=== PATIENT | male | born 1955 | race African-American/Black ===

== ENCOUNTER 2016-07-07 16:04 | Emergency (ER) | payer MEDICARE ==
[~2016-07-07 16:04] MED LIST: DIVA500T17 PO; DIVA500T2 PO; IPRA4AER IH; LEVE100020 PO; LORA0.5T PO; METO25TA4 PO; OMEP20TA PO; RISP2TAB3 PO; RISP37.5 IM; RISP4TAB2 PO; ZOLP10TA4 PO
[2016-07-07 16:14] VITALS: BP 141/81
--- NOTE | 2016-07-07 16:27 | PHYS DOC ---
Past Medical History Past Medical History: COPD, Hypertension, Seizure, Other Additional Past Medical Histor: PNEUMONIA LAST YEAR Past Surgical History: No Surgical History Alcohol Use: None Drug Use: Marijuana Adult General Chief Complaint Chief Complaint: SEIZURE HPI HPI 60-year-old male with a history of seizure disorder who is noncompliant with his medications presents after a seizure today. Patient does not remember the event. He does not think he is taking his medications regularly. He denies a headache or any lateralizing neurologic weakness. He states to me he is not sure why he is here. He has not had any fever chills or sweats. [] Review of Systems Review of Systems Constitutional: Denies fever or chills [] Eyes: Denies change in visual acuity, redness, or eye pain [] HENT: Denies nasal congestion or sore throat [] Respiratory: Denies cough or shortness of breath [] Cardiovascular: No additional information not addressed in HPI [] GI: Denies abdominal pain, nausea, vomiting, bloody stools or diarrhea [] : Denies dysuria or hematuria [] Musculoskeletal: Denies back pain or joint pain [] Integument: Denies rash or skin lesions [] Neurologic: Denies headache, focal weakness or sensory changes [] Endocrine: Denies polyuria or polydipsia [] Allergies Allergies Allergies Coded Allergies Type Severity Reaction Last Updated Verified Penicillins Allergy Intermediate 10/04/15 Yes chlorpromazine Allergy Intermediate 10/04/15 Yes Physical Exam Physical Exam Constitutional: Well developed, well nourished, no acute distress, non-toxic appearance. [] HENT: Normocephalic, atraumatic, bilateral external ears normal, oropharynx moist, no oral exudates, nose normal. [] Eyes: PERRLA, EOMI, conjunctiva normal, no discharge. [] Neck: Normal range of motion, no tenderness, supple, no stridor. [] Cardiovascular:Heart rate regular rhythm, no murmur [] Lungs & Thorax: Bilateral breath sounds clear to auscultation [] Abdomen: Bowel sounds normal, soft, no tenderness, no masses, no pulsatile masses. [] Skin: Warm, dry, no erythema, no rash. [] Back: No tenderness, no CVA tenderness. [] Extremities: No tenderness, no cyanosis, no clubbing, ROM intact, no edema. [] Neurologic: Alert and oriented X 3, normal motor function, normal sensory function, no focal deficits noted. [] Psychologic: Affect normal, judgement normal, mood normal. [] Current Patient Data Vital Signs Vital Signs Date Time Temp Pulse Resp B/P Pulse Ox O2 Delivery O2 Flow Rate FiO2 07/07/16 16:14 98.5 77 15 141/81 98 Room Air 98.5 EKG EKG [] Radiology/Procedures Radiology/Procedures [] Course & Med Decision Making Course & Med Decision Making Pertinent Labs and Imaging studies reviewed. (See chart for details) [ED course: Evaluation reveals 60-year-old male with a seizure disorder who states he does not want any testing performed on him today. Given the fact he is awake alert answering questions appropriately I feel he is safe for discharge home this time.] Dragon Disclaimer Dragon Disclaimer This electronic medical record was generated, in whole or in part, using a voice recognition dictation system. Departure Departure Impression: Primary Impression: Seizure Additional Impression: Medical non-compliance Disposition: 01 HOME, SELF-CARE Condition: STABLE Referrals: SYMONE EVANGELISTA (PCP) Patient Instructions: Seizure, Adult Additional Instructions: Please take all of her medications as directed. Return to the emergency department with any new or concerning symptoms Problem Qualifiers SUSAN YANG DO Jul 07, 2016 16:26
== END 2016-07-07 16:50 | disposition home or self-care (01) ==
LOC: ER 16:04
DX: G40.909 Epilepsy, unspecified, not intractable, without status epilepticus (principal); I10 Essential (primary) hypertension; J44.9 Chronic obstructive pulmonary disease, unspecified; F12.10 Cannabis abuse, uncomplicated; Z91.14 Patient's other noncompliance with medication regimen; Z88.0 Allergy status to penicillin; Z88.8 Allergy status to other drugs, medicaments and biological substances
CPT/HCPCS: 99284

== ENCOUNTER 2018-11-01 10:44 | Inpatient (IN) | payer MEDICARE ==
[~2018-11-01] VITALS: Ht 167.6 cm; Wt 66.3 kg
[~2018-11-01 10:44] MED LIST changes: -OMEP20TA PO; +OMEP20TA8 PO
[2018-11-01] MEDS ORDERED: IV NORMAL SALINE 1000ML BAG 1,000 ML IV SCH (10:49)
--- NOTE | 2018-11-01 10:49 | PHYS DOC ---
Past Medical History Past Medical History: COPD, Hypertension, Seizure, Other Additional Past Medical Histor: PNEUMONIA LAST YEAR Past Surgical History: No Surgical History Alcohol Use: None Drug Use: Marijuana Adult General Chief Complaint Chief Complaint: shortness of breath HPI HPI Patient is a 63 year old male patient with history of schizoaffective disorder and COPD without oxygen and resident of [facility] brought in by EMS because of shortness of breath. Patient had shortness of breath with O2 sat of 70% at room air that improved after rest and oxygen. Patient went outside and smoke and had another episode of shortness of breath with drop of O2 sat to 70% and was started on 2 L of oxygen. EMS reported that patient O2 sat of low 80s on 2 L of oxygen that increase with her starting CPAP. Patient denies chest pain with complaining of left lower quadrant pain as a chronic intermittent pain. Patient denies chest pain and productive cough, fever and chills, focal neuro deficit a nd dizziness. Patient is a poor historian. Review of Systems Review of Systems Constitutional: Denies fever or chills [] Eyes: Denies change in visual acuity, redness, or eye pain [] HENT: Denies nasal congestion or sore throat [] Respiratory: Reports cough and shortness of breath Cardiovascular: No additional information not addressed in HPI [] GI: Denies abdominal pain, nausea, vomiting, bloody stools or diarrhea [] : Denies dysuria or hematuria [] Musculoskeletal: Denies back pain or joint pain [] Integument: Denies rash or skin lesions [] Neurologic: Denies headache, focal weakness or sensory changes [] Endocrine: Denies polyuria or polydipsia [] All other systems were reviewed and found to be within normal limits, except as documented in this note. Current Medications Current Medications Current Medications Medications (Trade) Dose Ordered Sig/Madelaine Start Time Stop Time Status Last Admin Dose Admin Albuterol/ Ipratropium (Duoneb) 3 ml 1X ONCE 11/01/18 11:00 11/01/18 11:01 DC 11/01/18 11:24 3 ML Methylprednisolone Sodium Succinate (SOLU-Medrol 125MG VIAL) 125 mg 1X ONCE 11/01/18 11:00 11/01/18 11:01 DC 11/01/18 11:00 125 MG Sodium Chloride 1,000 ml @ 1,000 mls/hr Q1H 11/01/18 10:49 11/01/18 11:48 DC 11/01/18 11:10 1,000 MLS/HR Allergies Allergies Allergies Coded Allergies Type Severity Reaction Last Updated Verified Penicillins Allergy Intermediate 10/04/15 Yes chlorpromazine Allergy Intermediate 10/04/15 Yes Physical Exam Physical Exam Constitutional: Well nourished, moderate distress, non-toxic appearance. [] HENT: Normocephalic, atraumatic, oropharynx moist. Eyes: PERRLA, EOMI, conjunctiva normal, no discharge. [] Neck: Normal range of motion, no tenderness, supple, no stridor. [] Cardiovascular:Heart rate regular rhythm, no murmur [] Lungs & Thorax: Moderate respiratory distress with intercostal retraction and hyperventilation, diffuse rhonchi and expiratory wheezing . Abdomen: Bowel sounds normal, soft, no tenderness, no masses, no pulsatile ma sses. [] Skin: Warm, dry, no erythema, no rash. [] Back: No tenderness, no CVA tenderness. [] Extremities: No tenderness, no cyanosis, no clubbing, ROM intact, no edema. [] Neurologic: Alert and oriented , normal motor function, normal sensory function, no focal deficits noted. [] Current Patient Data Vital Signs Vital Signs Date Time Temp Pulse Resp B/P (MAP) Pulse Ox O2 Delivery O2 Flow Rate FiO2 11/01/18 10:44 98.2 69 30 189/86 (120) 96 Nasal Cannula 4.0 98.2 Lab Values Laboratory Tests Test 11/01/18 10:50 11/01/18 10:55 O2 Saturation 97 % (92-99) Arterial Blood pH 7.26 (7.35-7.45) L Arterial Blood pCO2 at Patient Temp 66 mmHg (35-46) *H Arterial Blood pO2 at Patient Temp 107 mmHg (65-108) Arterial Blood HCO3 29 mmol/L (21-28) H Arterial Blood Base Excess 0 mmol/L (-3-3) FiO2 32 White Blood Count 8.7 x10^3/uL (4.0-11.0) Red Blood Count 4.53 x10^6/uL (4.30-5.70) Hemoglobin 14.0 g/dL (13.0-17.5) Hematocrit 41.7 % (39.0-53.0) Mean Corpuscular Volume 92 fL (79-100) Mean Corpuscular Hemoglobin 31 pg (25-35) Mean Corpuscular Hemoglobin Concent 34 g/dL (31-37) Red Cell Distribution Width 13.8 % (11.5-14.5) Platelet Count 179 x10^3/uL (140-400) Neutrophils (%) (Auto) 51 % (31-73) Lymphocytes (%) (Auto) 32 % (24-48) Monocytes (%) (Auto) 9 % (0-9) Eosinophils (%) (Auto) 7 % (0-3) H Basophils (%) (Auto) 1 % (0-3) Neutrophils # (Auto) 4.4 x10^3uL (1.8-7.7) Lymphocytes # (Auto) 2.8 x10^3/uL (1.0-4.8) Monocytes # (Auto) 0.8 x10^3/uL (0.0-1.1) Eosinophils # (Auto) 0.6 x10^3/uL (0.0-0.7) Basophils # (Auto) 0.0 x10^3/uL (0.0-0.2) D-Dimer (Olivia) 0.52 ug/mlFEU (0.00-0.50) H Sodium Level 141 mmol/L (136-145) Potassium Level 4.6 mmol/L (3.5-5.1) Chloride Level 103 mmol/L (98-107) Carbon Dioxide Level 30 mmol/L (21-32) Anion Gap 8 (6-14) Blood Urea Nitrogen 14 mg/dL (8-26) Creatinine 1.2 mg/dL (0.7-1.3) Estimated GFR (Cockcroft-Gault) 73.5 BUN/Creatinine Ratio 12 (6-20) Glucose Level 91 mg/dL (70-99) Lactic Acid Level 0.8 mmol/L (0.4-2.0) Calcium Level 9.7 mg/dL (8.5-10.1) Total Bilirubin 0.3 mg/dL (0.2-1.0) Aspartate Amino Transferase (AST) 21 U/L (15-37) Alanine Aminotransferase (ALT) 26 U/L (16-63) Alkaline Phosphatase 108 U/L (46-116) Creatine Kinase 322 U/L (39-308) H Troponin I Quantitative < 0.017 ng/mL (0.000-0.055) PN-Uzz-H-Type Natriuretic Peptide 310 pg/mL (0-124) H Total Protein 8.1 g/dL (6.4-8.2) Albumin 3.6 g/dL (3.4-5.0) Albumin/Globulin Ratio 0.8 (1.0-1.7) L Valproic Acid Level 116 mcg/mL (50-100) H Valproic Acid Last Dose Date 10/31/18 Valproic Acid Last Dose Time 2100 Laboratory Tests 11/01/18 10:55 Laboratory Tests 11/01/18 10:55 EKG EKG EKG interpreted by me. EKG at 1050 showed normal sinus rhythm at rate of 70, left atrial abnormality, incomplete right bundle-branch block, nonspecific ST and T-wave abnormalities without ST elevation. Radiology/Procedures Radiology/Procedures [][facility] [address] [place] [address] IMAGING REPORT Signed PATIENT: JAKE GAONA ACCOUNT: [id number] : 1955 LOCATION: ER AGE: 63 SEX: M EXAM STATUS: REG ER ORD. PHYSICIAN: LIT THAPA MD REASON: shortness of breath PROCEDURE: PORTABLE CHEST 1V Single view chest dated 11/01/2018. Comparison made to 09/28/2015 CLINICAL INDICATION: Shortness of breath. FINDINGS: Single upright portable exam performed. Heart and mediastinal contours are stable. Lungs are somewhat hyperinflated but otherwise clear. No consolidation or pleural effusion. No pneumothorax. Moderate degenerative change of the right shoulder joint. IMPRESSION: No acute radiographic abnormality. Stable findings compared to 09/29/2015. Electronically signed by: Yunior Fitzgerald MD (11/01/2018 11:25 AM) [facility] DICTATED and SIGNED BY: YUNIOR FITZGERALD MD DATE: 11/01/18 1125 Course & Med Decision Making Course & Med Decision Making Pertinent Labs and Imaging studies reviewed. (See chart for details) Evaluation of patient in ER showed 63-year-old male patient with history of COPD and currently smoking brought in by EMS because of shortness of breath. Patient had respiratory distress that improved with nebulizer treatment and Solu-Medrol and IV fluid. Chest x-ray did not show infiltration.Patient requiring admission for further evaluation and treatment. Discussed with Dr. Weems who is in agreement with admission. Discussed findings and plan with patient and family, who acknowledge understanding and agreement. Dragon Disclaimer Dragon Disclaimer This electronic medical record was generated, in whole or in part, using a voice recognition dictation system. Departure Departure Impression: Primary Impression: COPD exacerbation Additional Impressions: Hypoxia Schizoaffective disorder Disposition: 09 ADMITTED INPATIENT (at 1151) Admitting Physician: Shelly Weems (accepted admission at 1150) Condition: IMPROVED Referrals: SYMONE EVANGELISTA (PCP) Problem Qualifiers Additional Impressions: Schizoaffective disorder Schizoaffective disorder type: unspecified Qualified Codes: F25.9 - Schizoaffective disorder, unspecified LIT THAPA MD November 01, 2018 10:49
[2018-11-01] MEDS ORDERED: methylPREDNISolone SOD SUCC PF 125 MG/2 ML VIAL. IV ONE (11:00)
[2018-11-01] MEDS ORDERED: IPRATRPIUM/ALBUTEROL 0.5/2.5MG 3 ML NEBU. NEB ONE (11:00)
[2018-11-01 11:04] LABS: BASE EXCESS ABG 0 mmol/L (-3-3); HCO3 ABG 29 mmol/L (21-28); PO2 ABG 107 mmHg (65-108); SAT O2 ABG 97 % (92-99)
[2018-11-01 11:09] LABS: FIO2 ABG 32; PCO2 ABG 66 mmHg (35-46)
[2018-11-01 11:13] LABS: BASO % 1 % (0-3); EOS # 0.6 x10^3/uL (0.0-0.7); EOS % 7 % (0-3); HEMATOCRIT 41.7 % (39.0-53.0); LYMPH # 2.8 x10^3/uL (1.0-4.8); LYMPH % 32 % (24-48); MEAN CORPUSCULAR HEMOGLOBIN 31 pg (25-35); MEAN CORPUSCULAR HGB CONC 34 g/dL (31-37); MEAN CORPUSCULAR VOLUME 92 fL (79-100); MONO # 0.8 x10^3/uL (0.0-1.1); MONO % 9 % (0-9); NEUT # 4.4 x10^3uL (1.8-7.7); NEUT % 51 % (31-73); PLATELET COUNT 179 x10^3/uL (140-400); RED BLOOD COUNT 4.53 x10^6/uL (4.30-5.70); RED CELL DISTRIBUTION WIDTH 13.8 % (11.5-14.5); WHITE BLOOD COUNT 8.7 x10^3/uL (4.0-11.0)
--- NOTE | 2018-11-01 11:22 | EKG ---
[facility] [address] [place] [address] Test Date: 2018-11-01 Test Time: 10:50:46 Pat Name: JAKE GAONA Department: Room: Gender: M Incident Manager: : 1955 Requested By: LIT THAPA Order Number: [id number] Reading MD: Yuniel Santos Measurements Intervals [place] Rate: 69 P: 73 CA: 146 QRS: 79 QRSD: 116 T: 53 QT: 416 QTc: 452 Interpretive Statements SINUS RHYTHM LEFT ATRIAL ABNORMALITY INCOMPLETE RIGHT BUNDLE BRANCH BLOCK Electronically Signed On 11-26-2018 11:39:43 CDT by Yuniel Santos
[2018-11-01 11:23] LABS: CALCIUM 9.7 mg/dL (8.5-10.1); CREATININE 1.2 mg/dL (0.7-1.3); GFR 73.5; POTASSIUM 4.6 mmol/L (3.5-5.1)
--- NOTE | 2018-11-01 11:28 | RAD ---
Single view chest dated 11/01/2018. Comparison made to 09/28/2015 CLINICAL INDICATION: Shortness of breath. FINDINGS: Single upright portable exam performed. Heart and mediastinal contours are stable. Lungs are somewhat hyperinflated but otherwise clear. No consolidation or pleural effusion. No pneumothorax. Moderate degenerative change of the right shoulder joint. IMPRESSION: No acute radiographic abnormality. Stable findings compared to 09/29/2015. Electronically signed by: Yunior Fitzgerald MD (11/01/2018 11:25 AM) [id number]
[2018-11-01 11:29] LABS: ALBUMIN 3.6 g/dL (3.4-5.0); ALBUMIN/GLOBULIN RATIO 0.8 (1.0-1.7); TOTAL BILIRUBIN 0.3 mg/dL (0.2-1.0); TOTAL PROTEIN 8.1 g/dL (6.4-8.2)
[2018-11-01 11:33] LABS: VAL ACID 116 mcg/mL (50-100)
[2018-11-01] MEDS ORDERED: cefTRIAXone IV Push 1 GM VIAL. IVP ONE (12:00)
[2018-11-01] MEDS ORDERED: KETOROLAC 30 MG/ML VIAL. IV ONE (12:45)
[2018-11-01] MEDS ORDERED: OLAN2.5T3 PO (14:13)
[2018-11-01] MEDS ORDERED: LORA0.5T PO (14:13)
[2018-11-01] MEDS ORDERED: LATA2.5D3 EACHEYE (14:13)
[2018-11-01] MEDS ORDERED: CARV12.511 PO (14:13)
[2018-11-01] MEDS ORDERED: VALP250C2 PO (14:13)
[2018-11-01] MEDS ORDERED: DOCU100C28 PO (14:13)
[2018-11-01] MEDS ORDERED: ZOLP5TAB5 PO (14:13)
[2018-11-01] MEDS ORDERED: HALO10TA PO (14:13)
[2018-11-01] MEDS ORDERED: FAMO20TA5 PO (14:13)
[2018-11-01] MEDS ORDERED: FLUV50TA2 PO (14:13)
[2018-11-01] MEDS ORDERED: DICL100G18 TP (14:13)
[2018-11-01] MEDS ORDERED: TRAM50TA PO (14:13)
[2018-11-01 14:35] VITALS: BP 150/96
[2018-11-01] MEDS ORDERED: RISPERIDONE 4 MG PO SCH (15:00)
[2018-11-01] MEDS ORDERED: DICLOFENAC SODIUM 1% TOPICAL GEL 100GM TUBE. TP PRN (15:00)
[2018-11-01] MEDS ORDERED: LORazepam 0.5 MG TABLET PO SCH ×2 (15:00→17:00)
[2018-11-01] MEDS: IPRATRPIUM/ALBUTEROL 0.5/2.5MG 3 ML NEBU. NEB SCH ×2 (15:29→19:15)
[2018-11-01] MEDS ORDERED: ALBUTEROL SULFATE 2.5 MG/3 ML NEBU. NEB PRN (15:45)
[2018-11-01] MEDS: DOXYCYCLINE HYCLATE 100 MG TABLET PO SCH ×2 (16:43→21:00)
[2018-11-01] MEDS: DOCUSATE SODIUM 100 MG CAPSULE. PO SCH (16:43)
[2018-11-01] MEDS: CARVEDILOL 12.5 MG TABLET. PO SCH (16:43)
[2018-11-01] MEDS: LORazepam 0.5 MG TABLET PO PRN ×2 (16:43→21:23)
[2018-11-01] MEDS ORDERED: NON FORMULARY ITEM (Ipratropium/Albuterol Sulfate (Combivent Respimat Inhal) 2 INH) IH SCH (17:00)
--- NOTE | 2018-11-01 17:45 | PDOC1 ---
History and Physical Date of Admission Date of Admission DATE: 11/01/18 TIME: 17:41 Identification/Chief Complaint Chief Complaint hypoxia, weakness Source Source: Chart review History of Present Illness History of Present Illness Mr. Trevino, 63 yo male, with schizoaffective do, odd affect at baseline, difficult historian. He feels dyspneic, Acute new short of breath today, at facility, was Sa02 70's, then EMS reported Sa02 82% on 2 liters, enroucnt, with marked expiratory wheezing, now on 6th floor, he is weak, and lethargic. complains of cough and chronic joint pain, would like something to eat. Flat affect Past Medical History Cardiovascular: HTN Pulmonary: COPD, Pneumonia CENTRAL NERVOUS SYSTEM: Seizure GI: GERD Hepatobiliary: Hep A/B/C Psych: Depression, Schizophrenia Renal/: Chronic renal failure Past Surgical History Past Surgical History: No pertinent history Family History Family History: Family History Unknown Social History Smoke: <1 pack per day ALCOHOL: none Drugs: Other Current Problem List Problem List Problems Medical Problems: (1) COPD exacerbation Status: Acute (2) Hypoxia Status: Acute (3) Schizoaffective disorder Status: Acute Current Medications Current Medications Current Medications Sodium Chloride 1,000 ml @ 1,000 mls/hr Q1H IV Last administered on 11/01/18at 11:10; Start 11/01/18 at 10:49; Stop 11/01/18 at 11:48; Status DC Albuterol/ Ipratropium (Duoneb) 3 ml 1X ONCE NEB Last administered on 9at 11:24; Start 11/01/18 at 11:00; Stop 11/01/18 at 11:01; Status DC Methylprednisolone Sodium Succinate (SOLU-Medrol 125MG VIAL) 125 mg 1X ONCE IV Last administered on 11/01/18at 11:00; Start 11/01/18 at 11:00; Stop 11/01/18 at 11:01; Status DC Ceftriaxone Sodium (Rocephin) 1 gm 1X ONCE IVP Last administered on 11/01/18at 12:44; Start 11/01/18 at 12:00; Stop 11/01/18 at 12:01; Status DC Ketorolac Tromethamine (Toradol 30mg Vial) 30 mg 1X ONCE IV Last administered on 11/01/18at 12:58; Start 11/01/18 at 12:45; Stop 11/01/18 at 12:46; Status DC Carvedilol (Coreg) 12.5 mg BIDWMEALS PO Last administered on 11/01/18at 16:43; Start 11/01/18 at 17:00 Diclofenac Sodium (Voltaren) 2 adrienne TID PRN PRN TP JOINT PAIN; Start 11/01/18 at 15:00 Docusate Sodium (Colace) 100 mg DAILY PO Last administered on 11/01/18at 16:43; Start 11/01/18 at 16:00 Famotidine (Pepcid) 20 mg HS PO ; Start 11/01/18 at 21:00 Lorazepam (Ativan) 0.5 mg TID PO ; Start 11/01/18 at 15:00; Stop 11/01/18 at 15:04; Status DC Lorazepam (Ativan) 0.5 mg QID PO ; Start 11/01/18 at 17:00; Status UNV Risperidone (RisperDAL CONSTA) 37.5 mg Q2WKS PRN IM PSYCHOSIS; Start 11/01/18 at 15:00; Status UNV Tramadol HCl (Ultram) 50 mg PRN Q6HRS PRN PO MILD TO MODERATE PAIN; Start 11/01/18 at 15:00 Valproic Acid (Depakene) 750 mg BID PO ; Start 11/01/18 at 21:00 Zolpidem Tartrate (Ambien) 5 mg QHS PO ; Start 11/01/18 at 21:00 Divalproex Sodium (Depakote) 500 mg QHS PO ; Start 11/01/18 at 21:00; Stop 11/01/18 at 21:00; Status DC Fluvoxamine Maleate (Luvox) 50 mg DAILY PO Last administered on 11/01/18at 16:52; Start 11/01/18 at 16:00 Haloperidol (Haldol) 10 mg QHS PO ; Start 11/01/18 at 21:00 Non-Formulary Medication (Ipratropium/ Albuterol Sulfate (Combivent Respimat Inhal)) 2 inh QID IH ; Start 11/01/18 at 17:00; Status UNV Latanoprost (Xalatan) 1 drop DAILY08 OU ; Start 11/02/18 at 08:00 Levetiracetam (Keppra) 1,000 mg BID PO ; Start 11/01/18 at 21:00 Olanzapine (ZyPREXA) 2.5 mg PRN Q2HRS PRN PO AGITATION; Start 11/01/18 at 15:15 Pantoprazole Sodium (Protonix) 40 mg DAILYAC PO ; Start 11/02/18 at 07:30 Non-Formulary Medication (Risperidone ) 4 mg DAILY(NOON) PO ; Start 11/01/18 at 15:00; Status UNV Lorazepam (Ativan) 0.5 mg PRN TID PRN PO ANXIETY / AGITATION Last administered on 11/01/18at 16:43; Start 11/01/18 at 15:15 Albuterol/ Ipratropium (Duoneb) 3 ml RTQID NEB Last administered on 11/01/18at 15:29; Start 11/01/18 at 16:00 Prednisone (Prednisone) 40 mg DAILY PO ; Start 11/02/18 at 09:00 Albuterol Sulfate (Ventolin Neb Soln) 2.5 mg PRN Q4HRS PRN NEB DYSPNEA OR WHEEZING; Start 11/01/18 at 15:45 Doxycycline Hyclate (Vibra-Tab) 100 mg BID PO Last administered on 11/01/18at 16:43; Start 11/01/18 at 16:00 Ceftriaxone Sodium (Rocephin) 1 gm Q24H IVP ; Start 11/02/18 at 12:00 Active Scripts Active Reported Zyprexa (Olanzapine) 2.5 Mg Tablet 1 Tab PO Q2H PRN Zolpidem Tartrate 5 Mg Tablet 5 Mg PO QHS Valproic Acid 250 Mg Capsule 750 Mg PO BID Tramadol Hcl 50 Mg Tablet 50 Mg PO Q6HRS PRN Lorazepam 0.5 Mg Tablet 0.5 Mg PO TID Latanoprost 2.5 Ml Drops 1 Drop EACHEYE DAILY08 Haloperidol 10 Mg Tablet 1 Tab PO QHS Fluvoxamine Maleate 50 Mg Tablet 1 Tab PO QHS Famotidine 20 Mg Tablet 20 Mg PO HS Voltaren (Diclofenac Sodium) 100 Gm Gel..gram. 2 Gm TP TID PRN PRN Docusate Sodium 100 Mg Capsule 1 Cap PO DAILY Carvedilol (Carvedilol) 12.5 Mg Tablet 12.5 Mg PO BIDWMEALS Risperidone 4 Mg Tablet 4 Mg PO DAILY(NOON) Depakote (Divalproex Sodium) 500 Mg Tablet.dr 500 Mg PO HS Zolpidem Tartrate 10 Mg Tablet 1 Tab PO QHS Risperdal Consta (Risperidone Microspheres) 37.5 Mg/2 Ml Disp.syrin 37.5 Mg IM Q2WKS PRN Omeprazole 20 Mg Tablet.dr 1 Tab PO DAILY Metoprolol Tartrate 25 Mg Tablet 25 Mg PO BID Lorazepam 0.5 Mg Tablet 1 Tab PO QID Keppra (Levetiracetam) 1,000 Mg Tablet 1 Tab PO BID Combivent Respimat Inhal (Ipratropium/Albuterol Sulfate) 4 Gm Aer.w.adap 2 Inh IH QID Allergies Allergies: Coded Allergies: Penicillins (Verified Allergy, Intermediate, 10/04/15) chlorpromazine (Verified Allergy, Intermediate, 10/04/15) codeine (Verified Allergy, Unknown, 11/01/18) ROS General: YES: Chills, Fatigue, Malaise PSYCHOLOGICAL ROS: YES: Sleep disturbances Eyes: No Blurry vision, No Decreased vision, No Double vision, No Dry eyes, No Excessive tearing, No Eye Pain, No Itchy Eyes, No Loss of vision, No Photophobia, No Scotomata, No Uses contacts, No Uses glasses, No Other HEENT: No: Heacaches, Visual Changes, Hearing change, Nasal congestion, Nasal discharge, Oral lesions, Sinus pain, Sore Throat, Epistaxis, Sneezing, Snoring, Tinnitus, Vertigo, Vocal changes, Other Respiratory: YES: Shortness of breath, Sputum Changes, Tachypnea, Wheezing Cardiovascular: No Chest Pain, No Palpitations, No Orthopnea, No Paroxysmal Noc. Dyspnea, No Edema, No Lt Headedness, No Other Gastrointestinal: No Nausea, No Vomiting, No Abdominal Pain, No Diarrhea, No Constipation, No Melena, No Hematochezia, No Other Genitourinary: No Dysuria, No Frequency, No Incontinence, No Hematuria, No Retention, No Discharge, No Urgency, No Pain, No Flank Pain, No Other, No , No , No , No , No , No , No Musculoskeletal: No Gait Disturbance, No Joint Pain, No Joint Stiffness, No Joint Swelling, No Muscle Pain, No Muscular Weakness, No Pain In:, No Swelling In:, No Other Neurological: No Behavorial Changes, No Bowel/Bladder ControlChng, No Confusion, No Dizziness, No Gait Disturbance, No Headaches, No Impaired Coord/balance, No Memory Loss, No Numbness/Tingling, No Seizures, No Speech Problems, No Tremors, No Visual Changes, No Weakness, No Other Skin: No Dry Skin, No Eczema, No Hair Changes, No Lumps, No Mole Changes, No Mottling, No Nail Changes, No Pruritus, No Rash, No Skin Lesion Changes, No Other, No Acne Physical Exam General: Alert, Oriented X3, Cooperative, mild distress HEENT: Mucous membr. moist/pink Lungs: Other (limited vol, exp wheeze, ) Heart: RRR Abdomen: Normal bowel sounds, Soft Extremities: No cyanosis, Normal pulses Skin: No rashes, No significant lesion Neuro: Normal tone, Sensation intact, Cranial nerves 3-12 NL Vitals Vitals Vital Signs Date Time Temp Pulse Resp B/P (MAP) Pulse Ox O2 Delivery O2 Flow Rate FiO2 11/01/18 16:43 55 150/96 11/01/18 15:33 97 Nasal Cannula 2.0 11/01/18 14:35 97.8 18 97.8 Labs Labs Laboratory Tests Test 11/01/18 10:50 11/01/18 10:55 O2 Saturation 97 % (92-99) Arterial Blood pH 7.26 (7.35-7.45) Arterial Blood pCO2 at Patient Temp 66 mmHg (35-46) Arterial Blood pO2 at Patient Temp 107 mmHg (65-108) Arterial Blood HCO3 29 mmol/L (21-28) Arterial Blood Base Excess 0 mmol/L (-3-3) FiO2 32 White Blood Count 8.7 x10^3/uL (4.0-11.0) Red Blood Count 4.53 x10^6/uL (4.30-5.70) Hemoglobin 14.0 g/dL (13.0-17.5) Hematocrit 41.7 % (39.0-53.0) Mean Corpuscular Volume 92 fL (79-100) Mean Corpuscular Hemoglobin 31 pg (25-35) Mean Corpuscular Hemoglobin Concent 34 g/dL (31-37) Red Cell Distribution Width 13.8 % (11.5-14.5) Platelet Count 179 x10^3/uL (140-400) Neutrophils (%) (Auto) 51 % (31-73) Lymphocytes (%) (Auto) 32 % (24-48) Monocytes (%) (Auto) 9 % (0-9) Eosinophils (%) (Auto) 7 % (0-3) Basophils (%) (Auto) 1 % (0-3) Neutrophils # (Auto) 4.4 x10^3uL (1.8-7.7) Lymphocytes # (Auto) 2.8 x10^3/uL (1.0-4.8) Monocytes # (Auto) 0.8 x10^3/uL (0.0-1.1) Eosinophils # (Auto) 0.6 x10^3/uL (0.0-0.7) Basophils # (Auto) 0.0 x10^3/uL (0.0-0.2) D-Dimer (Olivia) 0.52 ug/mlFEU (0.00-0.50) Sodium Level 141 mmol/L (136-145) Potassium Level 4.6 mmol/L (3.5-5.1) Chloride Level 103 mmol/L (98-107) Carbon Dioxide Level 30 mmol/L (21-32) Anion Gap 8 (6-14) Blood Urea Nitrogen 14 mg/dL (8-26) Creatinine 1.2 mg/dL (0.7-1.3) Estimated GFR (Cockcroft-Gault) 73.5 BUN/Creatinine Ratio 12 (6-20) Glucose Level 91 mg/dL (70-99) Lactic Acid Level 0.8 mmol/L (0.4-2.0) Calcium Level 9.7 mg/dL (8.5-10.1) Total Bilirubin 0.3 mg/dL (0.2-1.0) Aspartate Amino Transf (AST/SGOT) 21 U/L (15-37) Alanine Aminotransferase (ALT/SGPT) 26 U/L (16-63) Alkaline Phosphatase 108 U/L (46-116) Creatine Kinase 322 U/L (39-308) Troponin I Quantitative < 0.017 ng/mL (0.000-0.055) QW-Sqj-P-Type Natriuretic Peptide 310 pg/mL (0-124) Total Protein 8.1 g/dL (6.4-8.2) Albumin 3.6 g/dL (3.4-5.0) Albumin/Globulin Ratio 0.8 (1.0-1.7) Valproic Acid (Depakene) Level 116 mcg/mL (50-100) Valproic Acid Last Dose Date 10/31/18 Valproic Acid Last Dose Time 2100 Laboratory Tests Test 11/01/18 10:50 11/01/18 10:55 O2 Saturation 97 % (92-99) Arterial Blood pH 7.26 (7.35-7.45) Arterial Blood pCO2 at Patient Temp 66 mmHg (35-46) Arterial Blood pO2 at Patient Temp 107 mmHg (65-108) Arterial Blood HCO3 29 mmol/L (21-28) Arterial Blood Base Excess 0 mmol/L (-3-3) FiO2 32 White Blood Count 8.7 x10^3/uL (4.0-11.0) Red Blood Count 4.53 x10^6/uL (4.30-5.70) Hemoglobin 14.0 g/dL (13.0-17.5) Hematocrit 41.7 % (39.0-53.0) Mean Corpuscular Volume 92 fL (79-100) Mean Corpuscular Hemoglobin 31 pg (25-35) Mean Corpuscular Hemoglobin Concent 34 g/dL (31-37) Red Cell Distribution Width 13.8 % (11.5-14.5) Platelet Count 179 x10^3/uL (140-400) Neutrophils (%) (Auto) 51 % (31-73) Lymphocytes (%) (Auto) 32 % (24-48) Monocytes (%) (Auto) 9 % (0-9) Eosinophils (%) (Auto) 7 % (0-3) Basophils (%) (Auto) 1 % (0-3) Neutrophils # (Auto) 4.4 x10^3uL (1.8-7.7) Lymphocytes # (Auto) 2.8 x10^3/uL (1.0-4.8) Monocytes # (Auto) 0.8 x10^3/uL (0.0-1.1) Eosinophils # (Auto) 0.6 x10^3/uL (0.0-0.7) Basophils # (Auto) 0.0 x10^3/uL (0.0-0.2) D-Dimer (Olivia) 0.52 ug/mlFEU (0.00-0.50) Sodium Level 141 mmol/L (136-145) Potassium Level 4.6 mmol/L (3.5-5.1) Chloride Level 103 mmol/L (98-107) Carbon Dioxide Level 30 mmol/L (21-32) Anion Gap 8 (6-14) Blood Urea Nitrogen 14 mg/dL (8-26) Creatinine 1.2 mg/dL (0.7-1.3) Estimated GFR (Cockcroft-Gault) 73.5 BUN/Creatinine Ratio 12 (6-20) Glucose Level 91 mg/dL (70-99) Lactic Acid Level 0.8 mmol/L (0.4-2.0) Calcium Level 9.7 mg/dL (8.5-10.1) Total Bilirubin 0.3 mg/dL (0.2-1.0) Aspartate Amino Transf (AST/SGOT) 21 U/L (15-37) Alanine Aminotransferase (ALT/SGPT) 26 U/L (16-63) Alkaline Phosphatase 108 U/L (46-116) Creatine Kinase 322 U/L (39-308) Troponin I Quantitative < 0.017 ng/mL (0.000-0.055) XW-Hwf-E-Type Natriuretic Peptide 310 pg/mL (0-124) Total Protein 8.1 g/dL (6.4-8.2) Albumin 3.6 g/dL (3.4-5.0) Albumin/Globulin Ratio 0.8 (1.0-1.7) Valproic Acid (Depakene) Level 116 mcg/mL (50-100) Valproic Acid Last Dose Date 10/31/18 Valproic Acid Last Dose Time 2100 VTE Prophylaxis Ordered VTE Prophylaxis Devices: Yes VTE Pharmacological Prophylaxi: Yes Assessment/Plan Assessment/Plan acute hypoxic and hypercarbic respiratory failure, acute respiratory acidosis, improved in ER COPD with acute bronchitis schizoaffective disorder weakness, debility seizure d/o, JEREMY Dee MD November 01, 2018 17:45
[2018-11-01] MEDS: ENOXAPARIN 40 MG/0.4 ML SYRINGE. SQ SCH (18:00)
--- NOTE | 2018-11-01 18:06 | NUR ---
Pt changed to NPO status due to increase coughing on liquids and food. Consult in for Speech Therapy.
[2018-11-01 19:18] VITALS: BP 124/75
[2018-11-01] MEDS ORDERED: DIVALPROEX DELAYED RELEASE 500 MG TABLET.DR. PO SCH (21:00)
[2018-11-01] MEDS: VALPROIC ACID 250 MG CAPSULE. PO SCH (21:00)
[2018-11-01] MEDS: levETIRAcetam 500 MG TABLET PO SCH (21:00)
[2018-11-01] MEDS: FAMOTIDINE 20 MG TABLET. PO SCH (21:00)
[2018-11-01] MEDS: ZOLPIDEM 5 MG TABLET. PO SCH (21:23)
[2018-11-01] MEDS: OLANZapine 2.5 MG TABLET PO PRN (21:23)
[2018-11-01] MEDS: HALOPERIDOL 5 MG TABLET. PO SCH (21:23)
[2018-11-01 23:42] VITALS: BP 128/78
[2018-11-02 03:00] VITALS: BP 105/65
[2018-11-02 07:00] VITALS: BP 129/76
[2018-11-02] MEDS: IPRATRPIUM/ALBUTEROL 0.5/2.5MG 3 ML NEBU. NEB SCH ×4 (07:00→19:56)
[2018-11-02] MEDS: PANTOPRAZOLE 40 MG TABLET.DR. PO SCH (07:30)
[2018-11-02 07:40] LABS: BILIRUBIN,URINE NEGATIVE (NEG); CLARITY,URINE CLEAR; COLOR,URINE YELLOW; NITRITE,URINE NEGATIVE (NEG); PROTEIN,URINE NEGATIVE (NEG-TRACE); UROBILINOGEN,URINE 0.2 mg/dL (0.2 mg/dL)
[2018-11-02 08:00] LABS: BACTERIA,URINE 0 /HPF (0-FEW); HYALINE CASTS, URINE MODERATE /HPF; RBC,URINE 0 /HPF (0-2); SQUAMOUS EPITHELIAL CELL,UR FEW /LPF; WBC,URINE 0 /HPF (0-4)
[2018-11-02] MEDS ORDERED: LATANOPROST 0.005% OPHTH SOLUTION 2.5ML BOTTLE. OU SCH (08:00)
[2018-11-02] MEDS: CARVEDILOL 12.5 MG TABLET. PO SCH ×2 (08:00→18:29)
[2018-11-02] MEDS: DOCUSATE SODIUM 100 MG CAPSULE. PO SCH (09:00)
--- NOTE | 2018-11-02 10:28 | CONS ---
DATE OF CONSULTATION: PULMONARY CONSULTATION ATTENDING PHYSICIAN: Dr. Weems. REASON FOR CONSULTATION: Dyspnea. HISTORY OF PRESENT ILLNESS: The patient is a 63-year-old male with schizoaffective disorder and not the best historian. He presented to the hospital with dyspnea and hypoxia. He is normally not on oxygen. His sats were 82% on 2 liters. He has some expiratory wheezing which is audible. The patient is currently on oxygen. His ABG showed a pH of 7.26, pCO2 of 66 and a pO2 of 107 on 32% FiO2. He is still intermittently dozing. The patient has smoked since age 15 and continues to smoke cigarettes. He has a cough; no fever; no chills; no chest pains; no headaches; no nausea, vomiting or diarrhea. His chest x-ray did not reveal any definite consolidation. PAST MEDICAL HISTORY: Significant for history of COPD with ongoing tobaccoism, history of schizoaffective disorder, depression, chronic renal failure, seizure. PAST SURGICAL HISTORY: No recent surgery. FAMILY HISTORY: Unknown. ALLERGIES: PENICILLIN, CODEINE, and CHLORPROMAZINE. CURRENT MEDICATIONS: Reviewed as listed in the MRAD including antibiotic, Rocephin and DuoNeb. SYSTEM REVIEW: Ten-point system obtained. Pertinent positives discussed in my history of present illness, otherwise noncontributory. All systems that were negative were reviewed as well. SOCIAL HISTORY: Smoker since age 15 and continues to smoke cigarettes. PHYSICAL EXAMINATION: VITAL SIGNS: Reviewed, pulse ox 96% on 2 liters, afebrile. HEENT: Sclerae nonicteric. NECK: Supple. LUNGS: With bilateral expiratory wheezes. CARDIOVASCULAR: Regular rate and rhythm. ABDOMEN: Soft, nontender. EXTREMITIES: With no pitting edema. LABORATORY DATA: Labs were reviewed. His sodium is 141, BUN and creatinine 14 and 1.2. White cell count 8.7, hemoglobin 14.0. IMPRESSION: 1. [id number] hypercapnic respiratory failure secondary to acute exacerbation of chronic obstructive pulmonary disease in a patient who has been a smoker since age 15 and continues to smoke cigarettes. 2. Bronchospasm secondary to chronic obstructive pulmonary disease exacerbation. 3. Encephalopathy related to acute on chronic hypercapnia. 4. Acute bronchitis. RECOMMENDATIONS: 1. We will repeat another ABGs and if hypercapnia persist and is not compensated, we will place the patient on BiPAP. 2. Follow ABGs as needed. 3. Continue bronchodilators. 4. Continue antibiotics. 5. Avoid any sedatives. 6. Smoking cessation counseling provided. 7. Lovenox for DVT prophylaxis. 8. Discussed with RN and we will follow along with you. MAIN HANKS MD DR: YULISA/zacarias JOB#: [id number] / [id number]
[2018-11-02 11:00] VITALS: BP 128/72
[2018-11-02 12:19] LABS: BASE EXCESS ABG -1 mmol/L (-3-3); HCO3 ABG 23 mmol/L (21-28); PCO2 ABG 35 mmHg (35-46); PO2 ABG 84 mmHg (65-108); SAT O2 ABG 96 % (92-99)
[2018-11-02] MEDS: cefTRIAXone IV Push 1 GM VIAL. IVP SCH (12:25)
[2018-11-02] MEDS: OLANZapine 2.5 MG TABLET PO PRN ×2 (12:43→22:22)
[2018-11-02] MEDS: levETIRAcetam 500 MG TABLET PO SCH ×2 (12:43→22:19)
[2018-11-02] MEDS: LORazepam 0.5 MG TABLET PO PRN (12:43)
[2018-11-02] MEDS: VALPROIC ACID 250 MG CAPSULE. PO SCH ×2 (12:44→22:19)
[2018-11-02] MEDS: DOXYCYCLINE HYCLATE 100 MG TABLET PO SCH ×2 (12:44→22:20)
[2018-11-02 13:14] LABS: FIO2 ABG 32
--- NOTE | 2018-11-02 14:41 | NUR ---
SW following pt for anticipated dc needs. Chart reviewed and discussed with RN. SW confirmed with Lucho at [facility], Pt is LTC resident. SW faxed updates. Pt currently NPO and ST is consulted. Will continue to follow.
[2018-11-02 15:00] VITALS: BP 156/77
[2018-11-02] MEDS ORDERED: risperiDONE MICROSPHERES 50 MG/2 ML DISP.SYRIN. IM PRN (15:00)
[2018-11-02] MEDS: predniSONE 20 MG TABLET PO SCH (15:11)
--- NOTE | 2018-11-02 15:11 | PDOC ---
PROGRESS NOTES Chief Complaint Chief Complaint COPD with acute bronchitis and exacerbation Vccic-si-ebcydrg hypercapnic respiratory Bronchospasm chronic Encephalopathy History of Present Illness History of Present Illness looks improved swallow eval today, better try PO, reg diet may try to DC soon, Vitals Vitals Vital Signs Date Time Temp Pulse Resp B/P (MAP) Pulse Ox O2 Delivery O2 Flow Rate FiO2 11/02/18 14:59 97 Nasal Cannula 2.0 11/02/18 11:00 97.6 54 16 128/72 (90) 97.6 Physical Exam General: Alert, Oriented X3, Cooperative, mild distress Lungs: Clear Abdomen: Normal bowel sounds, Soft Extremities: No cyanosis, Normal pulses Skin: No rashes, No significant lesion Labs LABS Laboratory Tests Test 11/02/18 07:00 11/02/18 12:00 Urine Collection Type U cath Urine Color Yellow Urine Clarity Clear Urine pH 6.0 Urine Specific [place] 1.025 Urine Protein Negative mg/dL (NEG-TRACE) Urine Glucose (UA) Negative mg/dL (NEG) Urine Ketones (Stick) Trace mg/dL (NEG) Urine Blood Negative (NEG) Urine Nitrite Negative (NEG) Urine Bilirubin Negative (NEG) Urine Urobilinogen Dipstick 0.2 mg/dL (0.2 mg/dL) Urine Leukocyte Esterase Negative (NEG) Urine RBC 0 /HPF (0-2) Urine WBC 0 /HPF (0-4) Urine Squamous Epithelial Cells Few /LPF Urine Renal Epithelial Cells Few /LPF Urine Bacteria 0 /HPF (0-FEW) Urine Hyaline Casts Moderate /HPF Urine Mucus Mod /LPF O2 Saturation 96 % (92-99) Arterial Blood pH 7.42 (7.35-7.45) Arterial Blood pCO2 at Patient Temp 35 mmHg (35-46) Arterial Blood pO2 at Patient Temp 84 mmHg (65-108) Arterial Blood HCO3 23 mmol/L (21-28) Arterial Blood Base Excess -1 mmol/L (-3-3) FiO2 32 Assessment and Plan Assessmemt and Plan Problems Medical Problems: (1) COPD exacerbation Status: Acute (2) Hypoxia Status: Acute (3) Schizoaffective disorder Status: Acute Comment Review of Relevant I have reviewed the following items tierra (where applicable) has been applied. Labs Laboratory Tests Test 11/01/18 10:50 11/01/18 10:55 11/02/18 07:00 11/02/18 12:00 O2 Saturation 97 % (92-99) 96 % (92-99) Arterial Blood pH 7.26 (7.35-7.45) 7.42 (7.35-7.45) Arterial Blood pCO2 at Patient Temp 66 mmHg (35-46) 35 mmHg (35-46) Arterial Blood pO2 at Patient Temp 107 mmHg (65-108) 84 mmHg (65-108) Arterial Blood HCO3 29 mmol/L (21-28) 23 mmol/L (21-28) Arterial Blood Base Excess 0 mmol/L (-3-3) -1 mmol/L (-3-3) FiO2 32 32 White Blood Count 8.7 x10^3/uL (4.0-11.0) Red Blood Count 4.53 x10^6/uL (4.30-5.70) Hemoglobin 14.0 g/dL (13.0-17.5) Hematocrit 41.7 % (39.0-53.0) Mean Corpuscular Volume 92 fL (79-100) Mean Corpuscular Hemoglobin 31 pg (25-35) Mean Corpuscular Hemoglobin Concent 34 g/dL (31-37) Red Cell Distribution Width 13.8 % (11.5-14.5) Platelet Count 179 x10^3/uL (140-400) Neutrophils (%) (Auto) 51 % (31-73) Lymphocytes (%) (Auto) 32 % (24-48) Monocytes (%) (Auto) 9 % (0-9) Eosinophils (%) (Auto) 7 % (0-3) Basophils (%) (Auto) 1 % (0-3) Neutrophils # (Auto) 4.4 x10^3uL (1.8-7.7) Lymphocytes # (Auto) 2.8 x10^3/uL (1.0-4.8) Monocytes # (Auto) 0.8 x10^3/uL (0.0-1.1) Eosinophils # (Auto) 0.6 x10^3/uL (0.0-0.7) Basophils # (Auto) 0.0 x10^3/uL (0.0-0.2) D-Dimer (Olivia) 0.52 ug/mlFEU (0.00-0.50) Sodium Level 141 mmol/L (136-145) Potassium Level 4.6 mmol/L (3.5-5.1) Chloride Level 103 mmol/L (98-107) Carbon Dioxide Level 30 mmol/L (21-32) Anion Gap 8 (6-14) Blood Urea Nitrogen 14 mg/dL (8-26) Creatinine 1.2 mg/dL (0.7-1.3) Estimated GFR (Cockcroft-Gault) 73.5 BUN/Creatinine Ratio 12 (6-20) Glucose Level 91 mg/dL (70-99) Lactic Acid Level 0.8 mmol/L (0.4-2.0) Calcium Level 9.7 mg/dL (8.5-10.1) Total Bilirubin 0.3 mg/dL (0.2-1.0) Aspartate Amino Transf (AST/SGOT) 21 U/L (15-37) Alanine Aminotransferase (ALT/SGPT) 26 U/L (16-63) Alkaline Phosphatase 108 U/L (46-116) Creatine Kinase 322 U/L (39-308) Troponin I Quantitative < 0.017 ng/mL (0.000-0.055) NX-[id number]-[id number]-Type Natriuretic Peptide 310 pg/mL (0-124) Total Protein 8.1 g/dL (6.4-8.2) Albumin 3.6 g/dL (3.4-5.0) Albumin/Globulin Ratio 0.8 (1.0-1.7) Valproic Acid (Depakene) Level 116 mcg/mL (50-100) Valproic Acid Last Dose Date 10/31/18 Valproic Acid Last Dose Time 2100 Urine Collection Type U cath Urine Color Yellow Urine Clarity Clear Urine pH 6.0 Urine Specific [place] 1.025 Urine Protein Negative mg/dL (NEG-TRACE) Urine Glucose (UA) Negative mg/dL (NEG) Urine Ketones (Stick) Trace mg/dL (NEG) Urine Blood Negative (NEG) Urine Nitrite Negative (NEG) Urine Bilirubin Negative (NEG) Urine Urobilinogen Dipstick 0.2 mg/dL (0.2 mg/dL) Urine Leukocyte Esterase Negative (NEG) Urine RBC 0 /HPF (0-2) Urine WBC 0 /HPF (0-4) Urine Squamous Epithelial Cells Few /LPF Urine Renal Epithelial Cells Few /LPF Urine Bacteria 0 /HPF (0-FEW) Urine Hyaline Casts Moderate /HPF Urine Mucus Mod /LPF Laboratory Tests Test 11/02/18 07:00 11/02/18 12:00 Urine Collection Type U cath Urine Color Yellow Urine Clarity Clear Urine pH 6.0 Urine Specific [place] 1.025 Urine Protein Negative mg/dL (NEG-TRACE) Urine Glucose (UA) Negative mg/dL (NEG) Urine Ketones (Stick) Trace mg/dL (NEG) Urine Blood Negative (NEG) Urine Nitrite Negative (NEG) Urine Bilirubin Negative (NEG) Urine Urobilinogen Dipstick 0.2 mg/dL (0.2 mg/dL) Urine Leukocyte Esterase Negative (NEG) Urine RBC 0 /HPF (0-2) Urine WBC 0 /HPF (0-4) Urine Squamous Epithelial Cells Few /LPF Urine Renal Epithelial Cells Few /LPF Urine Bacteria 0 /HPF (0-FEW) Urine Hyaline Casts Moderate /HPF Urine Mucus Mod /LPF O2 Saturation 96 % (92-99) Arterial Blood pH 7.42 (7.35-7.45) Arterial Blood pCO2 at Patient Temp 35 mmHg (35-46) Arterial Blood pO2 at Patient Temp 84 mmHg (65-108) Arterial Blood HCO3 23 mmol/L (21-28) Arterial Blood Base Excess -1 mmol/L (-3-3) FiO2 32 Medications Current Medications Sodium Chloride 1,000 ml @ 1,000 mls/hr Q1H IV Last administered on 11/01/18at 11:10; Start 11/01/18 at 10:49; Stop 11/01/18 at 11:48; Status DC Albuterol/ Ipratropium (Duoneb) 3 ml 1X ONCE NEB Last administered on 11/01/18at 11:24; Start 11/01/18 at 11:00; Stop 11/01/18 at 11:01; Status DC Methylprednisolone Sodium Succinate (SOLU-Medrol 125MG VIAL) 125 mg 1X ONCE IV Last administered on 11/01/18at 11:00; Start 11/01/18 at 11:00; Stop 11/01/18 at 11:01; Status DC Ceftriaxone Sodium (Rocephin) 1 gm 1X ONCE IVP Last administered on 11/01/18at 12:44; Start 11/01/18 at 12:00; Stop 11/01/18 at 12:01; Status DC Ketorolac Tromethamine (Toradol 30mg Vial) 30 mg 1X ONCE IV Last administered on 11/01/18at 12:58; Start 11/01/18 at 12:45; Stop 11/01/18 at 12:46; Status DC Carvedilol (Coreg) 12.5 mg BIDWMEALS PO Last administered on 11/01/18at 16:43; Start 11/01/18 at 17:00 Diclofenac Sodium (Voltaren) 2 adrienne TID PRN PRN TP JOINT PAIN; Start 11/01/18 at 15:00 Docusate Sodium (Colace) 100 mg DAILY PO Last administered on 11/01/18at 16:43; Start 11/01/18 at 16:00 Famotidine (Pepcid) 20 mg HS PO ; Start 11/01/18 at 21:00 Lorazepam (Ativan) 0.5 mg TID PO ; Start 11/01/18 at 15:00; Stop 11/01/18 at 15:04; Status DC Lorazepam (Ativan) 0.5 mg QID PO ; Start 11/01/18 at 17:00; Status UNV Non-Formulary Medication 50 ea Q2WKS PRN IM PSYCHOSIS; Start 11/02/18 at 15:00 Tramadol HCl (Ultram) 50 mg PRN Q6HRS PRN PO MILD TO MODERATE PAIN; Start 11/01/18 at 15:00 Valproic Acid (Depakene) 750 mg BID PO Last administered on 11/02/18at 12:44; Start 11/01/18 at 21:00 Zolpidem Tartrate (Ambien) 5 mg QHS PO Last administered on 11/01/18at 21:23; Start 11/01/18 at 21:00 Divalproex Sodium (Depakote) 500 mg QHS PO ; Start 11/01/18 at 21:00; Stop 11/01/18 at 21:00; Status DC Fluvoxamine Maleate (Luvox) 50 mg DAILY PO Last administered on 11/01/18 16:52; Start 11/01/18 at 16:00 Haloperidol (Haldol) 10 mg QHS PO Last administered on 11/01/18 21:23; Start 11/01/18 at 21:00 Non-Formulary Medication (Ipratropium/ Albuterol Sulfate (Combivent Respimat Inhal)) 2 inh QID IH ; Start 11/01/18 at 17:00; Status UNV Latanoprost (Xalatan) 1 drop DAILY08 OU ; Start 11/02/18 at 08:00; Stop 11/02/18 at 12:10; Status DC Levetiracetam (Keppra) 1,000 mg BID PO Last administered on 11/02/18at 12:43; Start 11/01/18 at 21:00 Olanzapine (ZyPREXA) 2.5 mg PRN Q2HRS PRN PO AGITATION Last administered on 11/02/18at 12:43; Start 11/01/18 at 15:15 Pantoprazole Sodium (Protonix) 40 mg DAILYAC PO ; Start 11/02/18 at 07:30 Non-Formulary Medication (Risperidone ) 4 mg DAILY(NOON) PO ; Start 11/01/18 at 15:00; Status UNV Lorazepam (Ativan) 0.5 mg PRN TID PRN PO ANXIETY / AGITATION Last administered on 11/02/18at 12:43; Start 11/01/18 at 15:15 Albuterol/ Ipratropium (Duoneb) 3 ml RTQID NEB Last administered on 11/02/18at 14:59; Start 11/01/18 at 16:00 Prednisone (Prednisone) 40 mg DAILY PO ; Start 11/02/18 at 09:00 Albuterol Sulfate (Ventolin Neb Soln) 2.5 mg PRN Q4HRS PRN NEB DYSPNEA OR WHEEZING; Start 11/01/18 at 15:45 Doxycycline Hyclate (Vibra-Tab) 100 mg BID PO Last administered on 11/02/18at 12:44; Start 11/01/18 at 16:00 Ceftriaxone Sodium (Rocephin) 1 gm Q24H IVP Last administered on 11/02/18at 12:25; Start 11/02/18 at 12:00 Enoxaparin Sodium (Lovenox Per Pharmacy Prophylaxis Dosing) 1 each PRN DAILY PRN MC SEE COMMENTS; Start 11/01/18 at 17:45 Enoxaparin Sodium (Lovenox 40mg Syringe) 40 mg Q24H SQ ; Start 11/01/18 at 18:00 Latanoprost (Xalatan) 1 drop QHS OU ; Start 11/02/18 at 21:00 Active Scripts Active Reported Zyprexa (Olanzapine) 2.5 Mg Tablet 1 Tab PO Q2H PRN Zolpidem Tartrate 5 Mg Tablet 5 Mg PO QHS Valproic Acid 250 Mg Capsule 750 Mg PO BID Tramadol Hcl 50 Mg Tablet 50 Mg PO Q6HRS PRN Lorazepam 0.5 Mg Tablet 0.5 Mg PO TID Latanoprost 2.5 Ml Drops 1 Drop EACHEYE DAILY08 Haloperidol 10 Mg Tablet 1 Tab PO QHS Fluvoxamine Maleate 50 Mg Tablet 1 Tab PO QHS Famotidine 20 Mg Tablet 20 Mg PO HS Voltaren (Diclofenac Sodium) 100 Gm Gel..gram. 2 Gm TP TID PRN PRN Docusate Sodium 100 Mg Capsule 1 Cap PO DAILY Carvedilol (Carvedilol) 12.5 Mg Tablet 12.5 Mg PO BIDWMEALS Risperidone 4 Mg Tablet 4 Mg PO DAILY(NOON) Depakote (Divalproex Sodium) 500 Mg Tablet.dr 500 Mg PO HS Zolpidem Tartrate 10 Mg Tablet 1 Tab PO QHS Risperdal Consta (Risperidone Microspheres) 37.5 Mg/2 Ml Disp.syrin 37.5 Mg IM Q2WKS PRN Omeprazole 20 Mg Tablet.dr 1 Tab PO DAILY Metoprolol Tartrate 25 Mg Tablet 25 Mg PO BID Lorazepam 0.5 Mg Tablet 1 Tab PO QID Keppra (Levetiracetam) 1,000 Mg Tablet 1 Tab PO BID Combivent Respimat Inhal (Ipratropium/Albuterol Sulfate) 4 Gm Aer.w.adap 2 Inh IH QID Vitals/I & O Vital Sign - Last 24 Hours 11/01/18 11/01/18 11/01/18 11/01/18 15:33 16:43 19:15 19:18 Temp 99.0 99.0 Pulse 55 63 B/P (MAP) 150/96 124/75 (91) Pulse Ox 97 96 94 O2 Delivery Nasal Cannula Nasal Cannula Nasal Cannula O2 Flow Rate 2.0 2.0 2.0 11/01/18 11/01/18 11/02/18 11/02/18 20:00 23:42 03:00 07:00 Temp 98.8 98.1 97.4 98.8 98.1 97.4 Pulse 104 56 Resp 18 18 12 B/P (MAP) 128/78 (95) 105/65 (78) 129/76 (93) Pulse Ox 94 97 98 O2 Delivery Nasal Cannula Nasal Cannula Nasal Cannula O2 Flow Rate 2.0 2.0 2.0 2.0 11/02/18 11/02/18 11/02/18 11/02/18 07:01 08:00 08:03 11:00 Temp 97.6 97.6 Pulse 54 54 Resp 16 B/P (MAP) 128/72 128/72 (90) Pulse Ox 96 96 O2 Delivery Nasal Cannula Nasal Cannula O2 Flow Rate 2.0 2.0 2.0 11/02/18 11/02/18 11:23 14:59 Pulse Ox 97 O2 Delivery Nasal Cannula Nasal Cannula O2 Flow Rate 2.0 2.0 Intake and Output 11/01/18 11/01/18 11/02/18 15:00 23:00 07:00 Intake Total 0 ml 0 ml Output Total 0 ml Balance 0 ml 0 ml JEREMY ENAMORADO MD November 02, 2018 15:11
[2018-11-02] MEDS: ENOXAPARIN 40 MG/0.4 ML SYRINGE. SQ SCH (18:00)
[2018-11-02 19:10] VITALS: BP 128/73
[2018-11-02] MEDS: LATANOPROST 0.005% OPHTH SOLUTION 2.5ML BOTTLE. OU SCH (22:18)
[2018-11-02] MEDS: ZOLPIDEM 5 MG TABLET. PO SCH (22:19)
[2018-11-02] MEDS: LACTOBACILLUS RHAMNOSUS GG 1 CAPSULE. PO SCH (22:20)
[2018-11-02] MEDS: HALOPERIDOL 5 MG TABLET. PO SCH (22:20)
[2018-11-02] MEDS: FAMOTIDINE 20 MG TABLET. PO SCH (22:22)
[2018-11-02 23:10] VITALS: BP 147/76
[2018-11-03 03:10] VITALS: BP 136/74
[2018-11-03 07:00] VITALS: BP 169/99
[2018-11-03] MEDS: IPRATRPIUM/ALBUTEROL 0.5/2.5MG 3 ML NEBU. NEB SCH ×4 (07:26→19:51)
[2018-11-03] MEDS: levETIRAcetam 500 MG TABLET PO SCH ×2 (08:59→21:16)
[2018-11-03] MEDS: VALPROIC ACID 250 MG CAPSULE. PO SCH ×2 (09:00→21:16)
[2018-11-03] MEDS: predniSONE 20 MG TABLET PO SCH (09:00)
[2018-11-03] MEDS: LACTOBACILLUS RHAMNOSUS GG 1 CAPSULE. PO SCH ×2 (09:00→21:16)
[2018-11-03] MEDS: DOCUSATE SODIUM 100 MG CAPSULE. PO SCH (09:01)
[2018-11-03] MEDS: traMADol 50 MG TABLET PO PRN ×2 (09:01→16:58)
[2018-11-03] MEDS: CARVEDILOL 12.5 MG TABLET. PO SCH ×2 (09:01→18:05)
[2018-11-03] MEDS: PANTOPRAZOLE 40 MG TABLET.DR. PO SCH (09:02)
[2018-11-03] MEDS: DOXYCYCLINE HYCLATE 100 MG TABLET PO SCH ×2 (09:02→21:16)
--- NOTE | 2018-11-03 10:31 | PDOC ---
PULMONARY PROGRESS NOTES Subjective no soa, fully awake Vitals Vital Signs Date Time Temp Pulse Resp B/P (MAP) Pulse Ox O2 Delivery O2 Flow Rate FiO2 11/03/18 10:02 100 3.0 11/03/18 09:01 67 169/99 11/03/18 07:26 Nasal Cannula 11/03/18 07:00 98.3 18 98.3 General: Alert, No acute distress Lungs: Clear Cardiovascular: S1 Abdomen: Soft, Non-tender Extremities: No Edema Labs Laboratory Tests Test 11/01/18 10:50 11/01/18 10:55 11/02/18 07:00 11/02/18 12:00 O2 Saturation 97 % (92-99) 96 % (92-99) Arterial Blood pH 7.26 (7.35-7.45) 7.42 (7.35-7.45) Arterial Blood pCO2 at Patient Temp 66 mmHg (35-46) 35 mmHg (35-46) Arterial Blood pO2 at Patient Temp 107 mmHg (65-108) 84 mmHg (65-108) Arterial Blood HCO3 29 mmol/L (21-28) 23 mmol/L (21-28) Arterial Blood Base Excess 0 mmol/L (-3-3) -1 mmol/L (-3-3) FiO2 32 32 White Blood Count 8.7 x10^3/uL (4.0-11.0) Red Blood Count 4.53 x10^6/uL (4.30-5.70) Hemoglobin 14.0 g/dL (13.0-17.5) Hematocrit 41.7 % (39.0-53.0) Mean Corpuscular Volume 92 fL (79-100) Mean Corpuscular Hemoglobin 31 pg (25-35) Mean Corpuscular Hemoglobin Concent 34 g/dL (31-37) Red Cell Distribution Width 13.8 % (11.5-14.5) Platelet Count 179 x10^3/uL (140-400) Neutrophils (%) (Auto) 51 % (31-73) Lymphocytes (%) (Auto) 32 % (24-48) Monocytes (%) (Auto) 9 % (0-9) Eosinophils (%) (Auto) 7 % (0-3) Basophils (%) (Auto) 1 % (0-3) Neutrophils # (Auto) 4.4 x10^3uL (1.8-7.7) Lymphocytes # (Auto) 2.8 x10^3/uL (1.0-4.8) Monocytes # (Auto) 0.8 x10^3/uL (0.0-1.1) Eosinophils # (Auto) 0.6 x10^3/uL (0.0-0.7) Basophils # (Auto) 0.0 x10^3/uL (0.0-0.2) D-Dimer (Olivia) 0.52 ug/mlFEU (0.00-0.50) Sodium Level 141 mmol/L (136-145) Potassium Level 4.6 mmol/L (3.5-5.1) Chloride Level 103 mmol/L (98-107) Carbon Dioxide Level 30 mmol/L (21-32) Anion Gap 8 (6-14) Blood Urea Nitrogen 14 mg/dL (8-26) Creatinine 1.2 mg/dL (0.7-1.3) Estimated GFR (Cockcroft-Gault) 73.5 BUN/Creatinine Ratio 12 (6-20) Glucose Level 91 mg/dL (70-99) Lactic Acid Level 0.8 mmol/L (0.4-2.0) Calcium Level 9.7 mg/dL (8.5-10.1) Total Bilirubin 0.3 mg/dL (0.2-1.0) Aspartate Amino Transf (AST/SGOT) 21 U/L (15-37) Alanine Aminotransferase (ALT/SGPT) 26 U/L (16-63) Alkaline Phosphatase 108 U/L (46-116) Creatine Kinase 322 U/L (39-308) Troponin I Quantitative < 0.017 ng/mL (0.000-0.055) OJ-Hwt-H-Type Natriuretic Peptide 310 pg/mL (0-124) Total Protein 8.1 g/dL (6.4-8.2) Albumin 3.6 g/dL (3.4-5.0) Albumin/Globulin Ratio 0.8 (1.0-1.7) Valproic Acid (Depakene) Level 116 mcg/mL (50-100) Valproic Acid Last Dose Date 10/31/18 Valproic Acid Last Dose Time 2100 Urine Collection Type U cath Urine Color Yellow Urine Clarity Clear Urine pH 6.0 Urine Specific [place] 1.025 Urine Protein Negative mg/dL (NEG-TRACE) Urine Glucose (UA) Negative mg/dL (NEG) Urine Ketones (Stick) Trace mg/dL (NEG) Urine Blood Negative (NEG) Urine Nitrite Negative (NEG) Urine Bilirubin Negative (NEG) Urine Urobilinogen Dipstick 0.2 mg/dL (0.2 mg/dL) Urine Leukocyte Esterase Negative (NEG) Urine RBC 0 /HPF (0-2) Urine WBC 0 /HPF (0-4) Urine Squamous Epithelial Cells Few /LPF Urine Renal Epithelial Cells Few /LPF Urine Bacteria 0 /HPF (0-FEW) Urine Hyaline Casts Moderate /HPF Urine Mucus Mod /LPF Laboratory Tests Test 11/02/18 12:00 O2 Saturation 96 % (92-99) Arterial Blood pH 7.42 (7.35-7.45) Arterial Blood pCO2 at Patient Temp 35 mmHg (35-46) Arterial Blood pO2 at Patient Temp 84 mmHg (65-108) Arterial Blood HCO3 23 mmol/L (21-28) Arterial Blood Base Excess -1 mmol/L (-3-3) FiO2 32 Medications Active Scripts Medications Dose Route/Sig Max Daily Dose Days Date Category Zyprexa (Olanzapine) 2.5 Mg Tablet 1 Tab PO Q2H PRN 11/01/18 Reported Zolpidem Tartrate 5 Mg Tablet 5 Mg PO QHS 11/01/18 Reported Valproic Acid 250 Mg Capsule 750 Mg PO BID 11/01/18 Reported Tramadol Hcl 50 Mg Tablet 50 Mg PO Q6HRS PRN 11/01/18 Reported Lorazepam 0.5 Mg Tablet 0.5 Mg PO TID 11/01/18 Reported Latanoprost 2.5 Ml Drops 1 Drop EACHEYE DAILY08 11/01/18 Reported Haloperidol 10 Mg Tablet 1 Tab PO QHS 11/01/18 Reported Fluvoxamine Maleate 50 Mg Tablet 1 Tab PO QHS 11/01/18 Reported Famotidine 20 Mg Tablet 20 Mg PO HS 11/01/18 Reported Voltaren (Diclofenac Sodium) 100 Gm Gel..gram. 2 Gm TP TID PRN PRN 11/01/18 Reported Docusate Sodium 100 Mg Capsule 1 Cap PO DAILY 11/01/18 Reported Carvedilol (Carvedilol) 12.5 Mg Tablet 12.5 Mg PO BIDWMEALS 11/01/18 Reported Risperidone 4 Mg Tablet 4 Mg PO DAILY(NOON) 04/20/15 Reported Depakote (Divalproex Sodium) 500 Mg Tablet.dr 500 Mg PO HS 04/20/15 Reported Zolpidem Tartrate 10 Mg Tablet 1 Tab PO QHS 04/17/15 Reported Risperdal Consta (Risperidone Microspheres) 37.5 Mg/2 Ml Disp.syrin 37.5 Mg IM Q2WKS PRN 04/17/15 Reported Omeprazole 20 Mg Tablet.dr 1 Tab PO DAILY 04/17/15 Reported Metoprolol Tartrate 25 Mg Tablet 25 Mg PO BID 04/17/15 Reported Lorazepam 0.5 Mg Tablet 1 Tab PO QID 04/17/15 Reported Keppra (Levetiracetam) 1,000 Mg Tablet 1 Tab PO BID 04/17/15 Reported Combivent Respimat Inhal (Ipratropium/Albuterol Sulfate) 4 Gm Aer.w.adap 2 Inh IH QID 04/17/15 Reported Impression . IMPRESSION: 1. [id number] hypercapnic respiratory failure secondary to acute exacerbation of chronic obstructive pulmonary disease in a patient who has been a smoker since age 15 and continues to smoke cigarettes. 2. Bronchospasm secondary to chronic obstructive pulmonary disease exacerbation. resolved 3. Encephalopathy related to acute on chronic hypercapnia. 4. Acute bronchitis. Plan . : 1. repeat ABGs adequate 2. Follow ABGs as needed. 3. Continue bronchodilators. 4. Continue antibiotics. 5. Avoid any sedatives. 6. Smoking cessation counseling provided. 7. Lovenox for DVT prophylaxis. 8. Discussed with MAIN ARIAS MD November 03, 2018 10:30
[2018-11-03 11:00] VITALS: BP 141/80
[2018-11-03] MEDS: NICOTINE 7MG PATCH. TD SCH (13:30)
[2018-11-03] MEDS: cefTRIAXone IV Push 1 GM VIAL. IVP SCH (13:44)
[2018-11-03 15:00] VITALS: BP 136/76
[2018-11-03] MEDS: LORazepam 0.5 MG TABLET PO PRN (16:58)
[2018-11-03] MEDS: ENOXAPARIN 40 MG/0.4 ML SYRINGE. SQ SCH (18:00)
--- NOTE | 2018-11-03 19:07 | PDOC ---
PROGRESS NOTES Chief Complaint Chief Complaint COPD with acute bronchitis and exacerbation Locau-vm-mteqnid hypercapnic respiratory Bronchospasm chronic Encephalopathy Plan will do 6 minute walk test reasess in the am hoepfully will be able to discharge in the next 24 to 48 hours further recommendations based on clinical course History of Present Illness History of Present Illness looks improved swallow eval today, better try PO, reg diet may try to DC soon, Vitals Vitals Vital Signs Date Time Temp Pulse Resp B/P (MAP) Pulse Ox O2 Delivery O2 Flow Rate FiO2 11/03/18 18:05 62 136/76 11/03/18 17:58 99 3.0 11/03/18 16:28 Nasal Cannula 11/03/18 15:00 97.9 18 97.9 Physical Exam General: Alert, Oriented X3, Cooperative, mild distress Lungs: Clear Abdomen: Normal bowel sounds, Soft Extremities: No cyanosis, Normal pulses Skin: No rashes, No significant lesion Review of Systems Review of Systems 14 point review of system is negative only pertinent as per history of present illness Assessment and Plan Assessmemt and Plan Problems Medical Problems: (1) COPD exacerbation Status: Acute (2) Hypoxia Status: Acute (3) Schizoaffective disorder Status: Acute Comment Review of Relevant I have reviewed the following items tierra (where applicable) has been applied. Labs Laboratory Tests Test 11/02/18 07:00 11/02/18 12:00 Urine Collection Type U cath Urine Color Yellow Urine Clarity Clear Urine pH 6.0 Urine Specific [place] 1.025 Urine Protein Negative mg/dL (NEG-TRACE) Urine Glucose (UA) Negative mg/dL (NEG) Urine Ketones (Stick) Trace mg/dL (NEG) Urine Blood Negative (NEG) Urine Nitrite Negative (NEG) Urine Bilirubin Negative (NEG) Urine Urobilinogen Dipstick 0.2 mg/dL (0.2 mg/dL) Urine Leukocyte Esterase Negative (NEG) Urine RBC 0 /HPF (0-2) Urine WBC 0 /HPF (0-4) Urine Squamous Epithelial Cells Few /LPF Urine Renal Epithelial Cells Few /LPF Urine Bacteria 0 /HPF (0-FEW) Urine Hyaline Casts Moderate /HPF Urine Mucus Mod /LPF O2 Saturation 96 % (92-99) Arterial Blood pH 7.42 (7.35-7.45) Arterial Blood pCO2 at Patient Temp 35 mmHg (35-46) Arterial Blood pO2 at Patient Temp 84 mmHg (65-108) Arterial Blood HCO3 23 mmol/L (21-28) Arterial Blood Base Excess -1 mmol/L (-3-3) FiO2 32 Medications Current Medications Sodium Chloride 1,000 ml @ 1,000 mls/hr Q1H IV Last administered on 11/01/18at 11:10; Start 11/01/18 at 10:49; Stop 11/01/18 at 11:48; Status DC Albuterol/ Ipratropium (Duoneb) 3 ml 1X ONCE NEB Last administered on at 11:24; Start 11/01/18 at 11:00; Stop 11/01/18 at 11:01; Status DC Methylprednisolone Sodium Succinate (SOLU-Medrol 125MG VIAL) 125 mg 1X ONCE IV Last administered on 11/01/18at 11:00; Start 11/01/18 at 11:00; Stop 11/01/18 at 11:01; Status DC Ceftriaxone Sodium (Rocephin) 1 gm 1X ONCE IVP Last administered on 11/01/18at 12:44; Start 11/01/18 at 12:00; Stop 11/01/18 at 12:01; Status DC Ketorolac Tromethamine (Toradol 30mg Vial) 30 mg 1X ONCE IV Last administered on 11/01/18at 12:58; Start 11/01/18 at 12:45; Stop 11/01/18 at 12:46; Status DC Carvedilol (Coreg) 12.5 mg BIDWMEALS PO Last administered on 11/03/18at 18:05; Start 11/01/18 at 17:00 Diclofenac Sodium (Voltaren) 2 adrienne TID PRN PRN TP JOINT PAIN; Start 11/01/18 at 15:00 Docusate Sodium (Colace) 100 mg DAILY PO Last administered on 11/03/18at 09:01; Start 11/01/18 at 16:00 Famotidine (Pepcid) 20 mg HS PO Last administered on 11/02/18at 22:22; Start 11/01/18 at 21:00 Lorazepam (Ativan) 0.5 mg TID PO ; Start 11/01/18 at 15:00; Stop 11/01/18 at 15:04; Status DC Lorazepam (Ativan) 0.5 mg QID PO ; Start 11/01/18 at 17:00; Status UNV Non-Formulary Medication 50 ea Q2WKS PRN IM PSYCHOSIS Last administered on 11/02/18 22:24; Start 11/02/18 at 15:00 Tramadol HCl (Ultram) 50 mg PRN Q6HRS PRN PO MILD TO MODERATE PAIN Last administered on 11/03/18at 16:58; Start 11/01/18 at 15:00 Valproic Acid (Depakene) 750 mg BID PO Last administered on 11/03/18 09:00; Start 11/01/18 at 21:00 Zolpidem Tartrate (Ambien) 5 mg QHS PO Last administered on 11/02/18 22:19; Start 11/01/18 at 21:00 Divalproex Sodium (Depakote) 500 mg QHS PO ; Start 11/01/18 at 21:00; Stop 11/01/18 at 21:00; Status DC Fluvoxamine Maleate (Luvox) 50 mg DAILY PO Last administered on 11/03/18 09:00; Start 11/01/18 at 16:00 Haloperidol (Haldol) 10 mg QHS PO Last administered on 11/02/18 22:20; Start 11/01/18 at 21:00 Non-Formulary Medication (Ipratropium/ Albuterol Sulfate (Combivent Respimat Inhal)) 2 inh QID IH ; Start 11/01/18 at 17:00; Status UNV Latanoprost (Xalatan) 1 drop DAILY08 OU ; Start 11/02/18 at 08:00; Stop 11/02/18 at 12:10; Status DC Levetiracetam (Keppra) 1,000 mg BID PO Last administered on 11/03/18 08:59; Start 11/01/18 at 21:00 Olanzapine (ZyPREXA) 2.5 mg PRN Q2HRS PRN PO AGITATION, 2ND CHOICE Last administered on 11/02/18 22:22; Start 11/01/18 at 15:15 Pantoprazole Sodium (Protonix) 40 mg DAILYAC PO Last administered on 11/03/18 09:02; Start 11/02/18 at 07:30 Non-Formulary Medication (Risperidone ) 4 mg DAILY(NOON) PO ; Start 11/01/18 at 15:00; Status UNV Lorazepam (Ativan) 0.5 mg PRN TID PRN PO ANXIETY/AGITATION, 1ST CHOICE Last administered on 11/03/18at 16:58; Start 11/01/18 at 15:15 Albuterol/ Ipratropium (Duoneb) 3 ml RTQID NEB Last administered on 11/03/18at 16:28; Start 11/01/18 at 16:00 Prednisone (Prednisone) 40 mg DAILY PO Last administered on 11/03/18at 09:00; Start 11/02/18 at 09:00 Albuterol Sulfate (Ventolin Neb Soln) 2.5 mg PRN Q4HRS PRN NEB DYSPNEA OR WHEEZING; Start 11/01/18 at 15:45 Doxycycline Hyclate (Vibra-Tab) 100 mg BID PO Last administered on 11/03/18at 09:02; Start 11/01/18 at 16:00 Ceftriaxone Sodium (Rocephin) 1 gm Q24H IVP Last administered on 11/03/18at 13 :44; Start 11/02/18 at 12:00 Enoxaparin Sodium (Lovenox Per Pharmacy Prophylaxis Dosing) 1 each PRN DAILY PRN MC SEE COMMENTS; Start 11/01/18 at 17:45; Stop 11/03/18 at 15:24; Status DC Enoxaparin Sodium (Lovenox 40mg Syringe) 40 mg Q24H SQ ; Start 11/01/18 at 18:00 Latanoprost (Xalatan) 1 drop QHS OU Last administered on 11/02/18at 22:18; Start 11/02/18 at 21:00 Lactobacillus Rhamnosus (Culturelle) 1 cap BID PO Last administered on 11/03/18at 09:00; Start 11/02/18 at 21:00 Fluvoxamine Maleate (Luvox) 50 mg STK-MED ONCE .ROUTE ; Start 11/01/18 at 18:00; Stop 11/03/18 at 12:19; Status DC Fluvoxamine Maleate (Luvox) 50 mg STK-MED ONCE .ROUTE ; Start 11/02/18 at 09:00; Stop 11/03/18 at 12:20; Status DC Fluvoxamine Maleate (Luvox) 50 mg STK-MED ONCE .ROUTE ; Start 11/03/18 at 09:00; Stop 11/03/18 at 12:20; Status DC Nicotine (Nicoderm Cq 7mg) 1 patch DAILY TD ; Start 11/03/18 at 13:30 Active Scripts Active Reported Zyprexa (Olanzapine) 2.5 Mg Tablet 1 Tab PO Q2H PRN Zolpidem Tartrate 5 Mg Tablet 5 Mg PO QHS Valproic Acid 250 Mg Capsule 750 Mg PO BID Tramadol Hcl 50 Mg Tablet 50 Mg PO Q6HRS PRN Lorazepam 0.5 Mg Tablet 0.5 Mg PO TID Latanoprost 2.5 Ml Drops 1 Drop EACHEYE DAILY08 Haloperidol 10 Mg Tablet 1 Tab PO QHS Fluvoxamine Maleate 50 Mg Tablet 1 Tab PO QHS Famotidine 20 Mg Tablet 20 Mg PO HS Voltaren (Diclofenac Sodium) 100 Gm Gel..gram. 2 Gm TP TID PRN PRN Docusate Sodium 100 Mg Capsule 1 Cap PO DAILY Carvedilol (Carvedilol) 12.5 Mg Tablet 12.5 Mg PO BIDWMEALS Risperidone 4 Mg Tablet 4 Mg PO DAILY(NOON) Depakote (Divalproex Sodium) 500 Mg Tablet.dr 500 Mg PO HS Zolpidem Tartrate 10 Mg Tablet 1 Tab PO QHS Risperdal Consta (Risperidone Microspheres) 37.5 Mg/2 Ml Disp.syrin 37.5 Mg IM Q2WKS PRN Omeprazole 20 Mg Tablet.dr 1 Tab PO DAILY Metoprolol Tartrate 25 Mg Tablet 25 Mg PO BID Lorazepam 0.5 Mg Tablet 1 Tab PO QID Keppra (Levetiracetam) 1,000 Mg Tablet 1 Tab PO BID Combivent Respimat Inhal (Ipratropium/Albuterol Sulfate) 4 Gm Aer.w.adap 2 Inh IH QID Vitals/I & O Vital Sign - Last 24 Hours 11/02/18 11/02/18 11/02/18 11/03/18 19:10 20:00 23:10 03:10 Temp 98.4 98.1 97.8 98.4 98.1 97.8 Pulse 72 75 66 Resp 18 18 18 B/P (MAP) 128/73 (91) 147/76 (99) 136/74 (94) Pulse Ox 96 97 96 O2 Delivery Nasal Cannula Nasal Cannula Nasal Cannula O2 Flow Rate 2.0 2.0 2.5 2.5 11/03/18 11/03/18 11/03/18 11/03/18 07:00 07:26 08:00 09:01 Temp 98.3 98.3 Pulse 67 67 Resp 18 B/P (MAP) 169/99 (122) 169/99 Pulse Ox 100 O2 Delivery Nasal Cannula Nasal Cannula O2 Flow Rate 2.5 3.0 3.0 11/03/18 11/03/18 11/03/18 11/03/18 09:01 11:00 11:26 15:00 Temp 97.6 97.9 97.6 97.9 Pulse 74 62 Resp 18 18 B/P (MAP) 141/80 (100) 136/76 (96) Pulse Ox 100 100 99 O2 Delivery Nasal Cannula Nasal Cannula Nasal Cannula O2 Flow Rate 3.0 2.5 3.0 2.5 11/03/18 11/03/18 11/03/18 11/03/18 16:28 16:58 17:58 18:05 Pulse 62 B/P (MAP) 136/76 Pulse Ox 99 99 99 O2 Delivery Nasal Cannula O2 Flow Rate 3.0 3.0 3.0 Intake and Output 11/02/18 11/02/18 11/03/18 14:59 22:59 06:59 Intake Total 480 ml 240 ml Output Total 450 ml Balance 30 ml 240 ml ADONAY HARLEY MD November 03, 2018 19:07
[2018-11-03 19:43] VITALS: BP 157/88
[2018-11-03] MEDS: HALOPERIDOL 5 MG TABLET. PO SCH (21:15)
[2018-11-03] MEDS: OLANZapine 2.5 MG TABLET PO PRN (21:16)
[2018-11-03] MEDS: FAMOTIDINE 20 MG TABLET. PO SCH (21:16)
[2018-11-03] MEDS: ZOLPIDEM 5 MG TABLET. PO SCH (21:16)
[2018-11-03] MEDS: LATANOPROST 0.005% OPHTH SOLUTION 2.5ML BOTTLE. OU SCH (21:17)
[2018-11-03 23:16] VITALS: BP 170/96
[2018-11-04 03:07] VITALS: BP 129/68
[2018-11-04] MEDS: IPRATRPIUM/ALBUTEROL 0.5/2.5MG 3 ML NEBU. NEB SCH ×3 (07:51→16:07)
[2018-11-04 07:52] VITALS: BP 158/87
[2018-11-04] MEDS: CARVEDILOL 12.5 MG TABLET. PO SCH (08:00)
[2018-11-04] MEDS: NICOTINE 7MG PATCH. TD SCH (08:17)
[2018-11-04] MEDS: LACTOBACILLUS RHAMNOSUS GG 1 CAPSULE. PO SCH (08:17)
[2018-11-04] MEDS: DOCUSATE SODIUM 100 MG CAPSULE. PO SCH (08:17)
[2018-11-04] MEDS: PANTOPRAZOLE 40 MG TABLET.DR. PO SCH (08:18)
[2018-11-04] MEDS: VALPROIC ACID 250 MG CAPSULE. PO SCH (08:19)
[2018-11-04] MEDS: DOXYCYCLINE HYCLATE 100 MG TABLET PO SCH (08:19)
[2018-11-04] MEDS: predniSONE 20 MG TABLET PO SCH (08:19)
[2018-11-04] MEDS: traMADol 50 MG TABLET PO PRN (10:28)
[2018-11-04] MEDS: levETIRAcetam 500 MG TABLET PO SCH (10:29)
[2018-11-04] MEDS ORDERED: PRED20TA PO (10:34)
[2018-11-04] MEDS ORDERED: DOXY100T PO (10:34)
--- NOTE | 2018-11-04 10:35 | SNU/HH DC ---
DISCHARGE ORDERS DISCHARGE INFORMATION: DISCHARGE DATE: November 04, 2018 FINAL DIAGNOSIS Problems Medical Problems: (1) COPD exacerbation Status: Acute (2) Hypoxia Status: Acute (3) Schizoaffective disorder Status: Acute CONDITION ON DISCHARGE: Stable CODE STATUS: Code Status: Full SENIOR LIVING: SNF STAY <30 DAYS: Yes POST DISCHARGE ORDERS: ACTIVITY ORDERS: No restrictions DIET AFTER DISCHARGE: Cardiac WOUND/INCISION CARE: No wound care needed DISCHARGE MEDICATIONS: Home Meds Active Scripts Prednisone (PREDNISONE) 20 Mg Tablet, 40 MG PO DAILY for COPD for 3 Days, #6 TAB Prov:ADONAY HARLEY MD 11/04/18 Doxycycline Hyclate (DOXYCYCLINE HYCLATE) 100 Mg Tablet, 100 MG PO BID for COPD for 3 Days, #6 TAB Prov:ADONAY HARLEY MD 11/04/18 Reported Medications Olanzapine (ZYPREXA) 2.5 Mg Tablet, 1 TAB PO q2H prn for agitation, #30 TAB 1 Refill 11/01/18 Zolpidem Tartrate (ZOLPIDEM TARTRATE) 5 Mg Tablet, 5 MG PO QHS for insomnia, TAB 0 Refills 11/01/18 Valproic Acid (VALPROIC ACID) 250 Mg Capsule, 750 MG PO BID for schizo, CAP 11/01/18 Tramadol Hcl (TRAMADOL HCL) 50 Mg Tablet, 50 MG PO Q6HRS PRN for PAIN, TAB 11/01/18 Lorazepam (LORAZEPAM) 0.5 Mg Tablet, 0.5 MG PO TID for schizo, TAB 11/01/18 Latanoprost (LATANOPROST) 2.5 Ml Drops, 1 DROP EACHEYE DAILY08 for glaucoma, #7.5 ML 3 Refills 11/01/18 Haloperidol (HALOPERIDOL) 10 Mg Tablet, 1 TAB PO QHS for Paranoid Schizo, #30 TAB 2 Refills 11/01/18 Fluvoxamine Maleate (FLUVOXAMINE MALEATE) 50 Mg Tablet, 1 TAB PO QHS for OCD, #30 TAB 1 Refill 11/01/18 Famotidine (FAMOTIDINE) 20 Mg Tablet, 20 MG PO HS for GERD, TAB 11/01/18 Diclofenac Sodium (VOLTAREN) 100 Gm Gel..gram., 2 GM TP TID PRN PRN for PAIN, #100 GM 2 Refills 11/01/18 Docusate Sodium (DOCUSATE SODIUM) 100 Mg Capsule, 1 CAP PO DAILY for cons tipation, #30 CAP 11/01/18 Carvedilol (CARVEDILOL ) 12.5 Mg Tablet, 12.5 MG PO BIDWMEALS for CARDIAC, TAB 11/01/18 Risperidone (RISPERIDONE) 4 Mg Tablet, 4 MG PO DAILY(NOON), TAB 04/20/15 Divalproex Sodium (DEPAKOTE) 500 Mg Tablet.dr, 500 MG PO HS, TAB 04/20/15 Zolpidem Tartrate (ZOLPIDEM TARTRATE) 10 Mg Tablet, 1 TAB PO QHS, #30 TAB 2 Refills 04/17/15 Risperidone Microspheres (RISPERDAL CONSTA) 37.5 Mg/2 Ml Disp.syrin, 37.5 MG IM Q2WKS PRN for PSYCHOSIS, SYR 04/17/15 Omeprazole (OMEPRAZOLE) 20 Mg Tablet.dr, 1 TAB PO DAILY, #90 TAB 1 Refill 04/17/15 Metoprolol Tartrate (METOPROLOL TARTRATE) 25 Mg Tablet, 25 MG PO BID for FOR HYPERTENSION, #60 TAB 0 Refills 04/17/15 Lorazepam (LORAZEPAM) 0.5 Mg Tablet, 1 TAB PO QID, #90 TAB 04/17/15 Levetiracetam (KEPPRA) 1,000 Mg Tablet, 1 TAB PO BID, #60 TAB 5 Refills 04/17/15 Ipratropium/Albuterol Sulfate (COMBIVENT RESPIMAT INHAL) 4 Gm Aer.w.adap, 2 INH IH QID, INHALER 04/17/15 ADONAY HARLEY MD November 04, 2018 10:35
--- NOTE | 2018-11-04 10:37 | PDOC3 ---
Discharge Summary Visit Information Date of Admission: November 02, 2018 Date of Discharge: November 04, 2018 Admitting Diagnosis: COPD exacerbation Final Diagnosis Problems Medical Problems: (1) COPD exacerbation Status: Acute (2) Hypoxia Status: Acute (3) Schizoaffective disorder Status: Acute Brief Hospital Course Allergies Allergies Coded Allergies Type Severity Reaction Last Updated Verified Penicillins Allergy Intermediate 10/04/15 Yes chlorpromazine Allergy Intermediate 10/04/15 Yes codeine Allergy Intermediate 11/01/18 Yes Vital Signs Vital Signs Date Time Temp Pulse Resp B/P (MAP) Pulse Ox O2 Delivery O2 Flow Rate FiO2 11/04/18 10:28 Room Air 11/04/18 08:00 51 158/87 11/04/18 07:53 99 2.5 11/04/18 07:52 97.8 20 97.8 Lab Results Laboratory Tests Test 11/02/18 12:00 O2 Saturation 96 % (92-99) Arterial Blood pH 7.42 (7.35-7.45) Arterial Blood pCO2 at Patient Temp 35 mmHg (35-46) Arterial Blood pO2 at Patient Temp 84 mmHg (65-108) Arterial Blood HCO3 23 mmol/L (21-28) Arterial Blood Base Excess -1 mmol/L (-3-3) FiO2 32 Brief Hospital Course Mr. Trevino, 63 yo male, with schizoaffective do, odd affect at baseline, difficult historian. He feels dyspneic, Acute new short of breath today, at facility, was Sa02 70's, then EMS reported Sa02 82% on 2 liters, enroucnt, with marked expiratory wheezing, now on 6th floor, he is weak, and lethargic. complains of cough and chronic joint pain, would like something to eat. Flat affect Patient admitted to the medical floor where she was started on broad-spectrum antibiotics and steroids. Patient responded quite well to the treatment in his respiratory distress was alleviated. The patient had a 6 minute walk test and he did not desaturate below 94. The patient was deemed appropriate for discharge with instructions to continue with doxycycline and prednisone for 3 more days. We will finish a 5 day course of antibiotics and steroids. Signs and symptoms of alarm discussed prior to discharge no acute events during the inpatient setting good spirits to be dismissed from the hospital. Gen.: well-developed well-nourished in no apparent distress Head: Normal shape atraumatic Eyes: Pupils equal reactive to light and accommodation, normal conjunctivae and lids Ears: Normal shape Nose: Normal shape no trauma Mouth: No exudates of the back of throat no thrush no lesions Neck: Supple no JVD no carotid bruit or lymphadenopathy no thyromegaly Chest: Lungs clear to auscultation with good inspiratory effort no crackles rales or rhonchi Cardiovascular: S1-S2 regular rhythm no murmurs gallops or rubs Abdomen: Bowel sounds present soft nontender no hepatosplenomegaly appreciated sign Extremities: No clubbing no cyanosis no edema peripheral pulses palpated bilaterally Neurological: Alert awake oriented in person time place and situation, cranial nerves II through XII intact, no motor or sensory deficits appreciated Psych: Appropriate mood, cooperative Discharge Information Condition at Discharge: Improved Follow Up: Weeks Disposition/Orders: D/C to Another Facility Scheduled Carvedilol (Carvedilol ) 12.5 Mg Tablet, 12.5 MG PO BIDWMEALS for CARDIAC, (Reported) Entered as Reported by: BENJAMIN MEDRANO on 11/01/181412 Last Taken: Unknown Dose on Unknown Date & Time Last Action: Continued on 11/01/181455 by JEREMY ENAMORADO Divalproex Sodium (Depakote) 500 Mg Tablet.dr, 500 MG PO HS, (Reported) Entered as Reported by: LIBAN HOSKINS on 04/20/15 133 Last Action: Converted on 11/01/181455 by JEREMY ENAMORADO Docusate Sodium (Docusate Sodium) 100 Mg Capsule, 1 CAP PO DAILY for constipation, #30 (Reported) Entered as Reported by: BENJAMIN MEDRANO on 11/01/181412 Last Taken: Unknown Dose on Unknown Date & Time Last Action: Continued on 11/01/181455 by JEREMY ENAMORADO Doxycycline Hyclate (Doxycycline Hyclate) 100 Mg Tablet, 100 MG PO BID for COPD for 3 Days, #6 Prescribed by: ADONAY HARLEY MD on 11/04/18 1034 Famotidine (Famotidine) 20 Mg Tablet, 20 MG PO HS for GERD, (Reported) Entered as Reported by: BENJAMIN MEDRANO on 11/01/181412 Last Taken: Unknown Dose on Unknown Date & Time Last Action: Continued on 11/01/181455 by JEREMY ENAMORADO Fluvoxamine Maleate (Fluvoxamine Maleate) 50 Mg Tablet, 1 TAB PO QHS for OCD, #30 Ref 1 (Reported) Entered as Reported by: BENJAMIN MEDRANO on 11/01/181412 Last Taken: Unknown Dose on Unknown Date & Time Last Action: Converted on 11/01/181455 by JEREMY ENAMORADO Haloperidol (Haloperidol) 10 Mg Tablet, 1 TAB PO QHS for Paranoid Schizo, #30 Ref 2 (Reported) Entered as Reported by: BENJAMIN MEDRANO on 11/01/181412 Last Taken: Unknown Dose on Unknown Date & Time Last Action: Converted on 11/01/181455 by JEREMY ENAMORADO Ipratropium/Albuterol Sulfate (Combivent Respimat Inhal) 4 Gm Aer.w.adap, 2 INH IH QID, (Reported) Entered as Reported by: GEE HELMS on 04/17/151107 Last Action: Converted on 11/01/181455 by JEREMY ENAMORADO Latanoprost (Latanoprost) 2.5 Ml Drops, 1 DROP EACHEYE DAILY08 for glaucoma, #7.5 Ref 3 (Reported) Entered as Reported by: BENJAMIN MEDRANO on 11/01/181412 Last Taken: Unknown Dose on Unknown Date & Time Last Action: Converted on 11/01/181455 by JEREMY ENAMORADO Levetiracetam (Keppra) 1,000 Mg Tablet, 1 TAB PO BID, #60 Ref 5 (Reported) Entered as Reported by: GEE HELMS on 04/17/151107 Last Taken: Unknown Dose on Unknown Date & Time Last Action: Converted on 11/01/181455 by JEREMY ENAMORADO Lorazepam (Lorazepam) 0.5 Mg Tablet, 1 TAB PO QID, #90 (Reported) Entered as Reported by: GEE HELMS on 04/17/151107 Last Action: Continued on 11/01/181455 by JEREMY ENAMORADO Lorazepam (Lorazepam) 0.5 Mg Tablet, 0.5 MG PO TID for schizo, (Reported) Entered as Reported by: BENJAMIN MEDRANO on 11/01/181412 Last Taken: Unknown Dose on Unknown Date & Time Last Action: Continued on 11/01/181455 by JEREMY ENAMORADO Metoprolol Tartrate (Metoprolol Tartrate) 25 Mg Tablet, 25 MG PO BID for FOR HYPERTENSION, #60 Ref 0 (Reported) Entered as Reported by: GEE HELMS on 04/17/158 Last Action: HELD on 11/01/181455 by JEREMY ENAMORADO Olanzapine (Zyprexa) 2.5 Mg Tablet, 1 TAB PO q2H prn for agitation, #30 Ref 1 (Reported) Entered as Reported by: BENJAMIN MEDRANO on 11/01/181412 Last Taken: Unknown Dose on Unknown Date & Time Last Action: Converted on 11/01/181455 by JEREMY ENAMORADO Omeprazole (Omeprazole) 20 Mg Tablet.dr, 1 TAB PO DAILY, #90 Ref 1 (Reported) Entered as Reported by: GEE HELMS on 04/17/151107 Last Action: Converted on 11/01/181455 by JEREMY ENAMORADO Prednisone (Prednisone) 20 Mg Tablet, 40 MG PO DAILY for COPD for 3 Days, #6 Prescribed by: AODNAY HARLEY MD on 11/04/18 1034 Risperidone (Risperidone) 4 Mg Tablet, 4 MG PO DAILY(NOON), (Reported) Entered as Reported by: LIBAN HOSKINS on 04/20/15 1338 Last Action: Converted on 11/01/181455 by JEREMY ENAMORADO Valproic Acid (Valproic Acid) 250 Mg Capsule, 750 MG PO BID for schizo, (Reported) Entered as Reported by: BENJAMIN MEDRANO on 11/01/181412 Last Taken: Unknown Dose on Unknown Date & Time Last Action: Continued on 11/01/181455 by JEREMY ENAMORADO Zolpidem Tartrate (Zolpidem Tartrate) 10 Mg Tablet, 1 TAB PO QHS, #30 Ref 2 (Reported) Entered as Reported by: JOSE ANTONIO FUENTES on 04/17/15 1754 Last Action: HELD on 11/01/181455 by JEREMY ENAMORADO Zolpidem Tartrate (Zolpidem Tartrate) 5 Mg Tablet, 5 MG PO QHS for insomnia, Ref 0 (Reported) Entered as Reported by: BENJAMIN MEDRANO on 11/01/181412 Last Taken: Unknown Dose on Unknown Date & Time Last Action: Continued on 11/01/181455 by JEREMY ENAMORADO Scheduled PRN Diclofenac Sodium (Voltaren) 100 Gm Gel..gram., 2 GM TP TID PRN PRN for PAIN, #100 Ref 2 (Reported) Entered as Reported by: BENJAMIN MEDRANO on 11/01/181412 Last Taken: Unknown Dose on Unknown Date & Time Last Action: Continued on 11/01/181455 by JEREMY ENAMORADO Risperidone Microspheres (Risperdal Consta) 37.5 Mg/2 Ml Disp.syrin, 37.5 MG IM Q2WKS PRN for PSYCHOSIS, (Reported) Entered as Reported by: GEE HELMS on 04/17/15 1108 Last Taken: Unknown Dose on Unknown Date & Time Last Action: Continued on 11/01/181455 by JEREMY ENAMORADO Tramadol Hcl (Tramadol Hcl) 50 Mg Tablet, 50 MG PO Q6HRS PRN for PAIN, (Reported) Entered as Reported by: BENJAMIN MEDRANO on 11/01/181412 Last Taken: Unknown Dose on Unknown Date & Time Last Action: Continued on 11/01/181455 by ADONAY CORONA MD November 04, 2018 10:37
[2018-11-04 11:38] VITALS: BP 135/82
--- NOTE | 2018-11-04 11:42 | NUR ---
CASSIE faxed orders to [facility] and left a voice mail to Sandra requesting a call back regarding transportation. ALONA MANZO.
--- NOTE | 2018-11-04 13:10 | PDOC ---
PULMONARY PROGRESS NOTES Subjective no soa, fully awake Vitals Vital Signs Date Time Temp Pulse Resp B/P (MAP) Pulse Ox O2 Delivery O2 Flow Rate FiO2 11/04/18 11:54 99 Nasal Cannula 2.5 11/04/18 11:38 98.6 71 18 135/82 (99) 98.6 General: Alert, No acute distress Lungs: Clear Cardiovascular: S1 Abdomen: Soft, Non-tender Extremities: No Edema Medications Active Scripts Medications Dose Route/Sig Max Daily Dose Days Date Category Zyprexa (Olanzapine) 2.5 Mg Tablet 1 Tab PO Q2H PRN 11/01/18 Reported Zolpidem Tartrate 5 Mg Tablet 5 Mg PO QHS 11/01/18 Reported Valproic Acid 250 Mg Capsule 750 Mg PO BID 11/01/18 Reported Tramadol Hcl 50 Mg Tablet 50 Mg PO Q6HRS PRN 11/01/18 Reported Lorazepam 0.5 Mg Tablet 0.5 Mg PO TID 11/01/18 Reported Latanoprost 2.5 Ml Drops 1 Drop EACHEYE DAILY08 11/01/18 Reported Haloperidol 10 Mg Tablet 1 Tab PO QHS 11/01/18 Reported Fluvoxamine Maleate 50 Mg Tablet 1 Tab PO QHS 11/01/18 Reported Famotidine 20 Mg Tablet 20 Mg PO HS 11/01/18 Reported Voltaren (Diclofenac Sodium) 100 Gm Gel..gram. 2 Gm TP TID PRN PRN 11/01/18 Reported Docusate Sodium 100 Mg Capsule 1 Cap PO DAILY 11/01/18 Reported Carvedilol (Carvedilol) 12.5 Mg Tablet 12.5 Mg PO BIDWMEALS 11/01/18 Reported Risperidone 4 Mg Tablet 4 Mg PO DAILY(NOON) 04/20/15 Reported Depakote (Divalproex Sodium) 500 Mg Tablet.dr 500 Mg PO HS 04/20/15 Reported Zolpidem Tartrate 10 Mg Tablet 1 Tab PO QHS 04/17/15 Reported Risperdal Consta (Risperidone Microspheres) 37.5 Mg/2 Ml Disp.syrin 37.5 Mg IM Q2WKS PRN 04/17/15 Reported Omeprazole 20 Mg Tablet.dr 1 Tab PO DAILY 04/17/15 Reported Metoprolol Tartrate 25 Mg Tablet 25 Mg PO BID 04/17/15 Reported Lorazepam 0.5 Mg Tablet 1 Tab PO QID 04/17/15 Reported Keppra (Levetiracetam) 1,000 Mg Tablet 1 Tab PO BID 04/17/15 Reported Combivent Respimat Inhal (Ipratropium/Albuterol Sulfate) 4 Gm Aer.w.adap 2 Inh IH QID 04/17/15 Reported Impression . IMPRESSION: 1. [id number] hypercapnic respiratory failure secondary to acute exacerbation of chronic obstructive pulmonary disease in a patient who has been a smoker since age 15 and continues to smoke cigarettes. 2. Bronchospasm secondary to chronic obstructive pulmonary disease exacerbation. resolved 3. Encephalopathy related to acute on chronic hypercapnia. 4. Acute bronchitis. Plan . : 1. repeat ABGs adequate 2. clinically better 3. Continue bronchodilators. 4. Continue antibiotics. 5. Avoid any sedatives. 6. Smoking cessation counseling provided. ok with [facility] MAIN HANKS MD November 04, 2018 13:10
--- NOTE | 2018-11-04 13:44 | NUR ---
SW following pt. Pt will transport via facility arranged transportation at 1600. Pt's sister notified of plan via phone. Packet on chart and RN notified.
[2018-11-04 15:19] VITALS: BP 137/88
== END 2018-11-04 16:40 | disposition home or self-care (01) | DRG 871 ==
LOC: ER 10:44 → 6 SOUTH 11:05
PROVIDERS: ADMIT Internal Medicine; ATTEND Internal Medicine
DX: A41.9 Sepsis, unspecified organism (principal); J96.21 Acute and chronic respiratory failure with hypoxia; J96.22 Acute and chronic respiratory failure with hypercapnia; J44.1 Chronic obstructive pulmonary disease with (acute) exacerbation; E87.2 Acidosis; J44.0 Chronic obstructive pulmonary disease with (acute) lower respiratory infection; G93.40 Encephalopathy, unspecified; N18.9 Chronic kidney disease, unspecified; I12.9 Hypertensive chronic kidney disease with stage 1 through stage 4 chronic kidney disease, or unspecified chronic kidney disease; F32.9 Major depressive disorder, single episode, unspecified; F17.210 Nicotine dependence, cigarettes, uncomplicated; F25.9 Schizoaffective disorder, unspecified; G40.909 Epilepsy, unspecified, not intractable, without status epilepticus; G89.29 Other chronic pain; J20.9 Acute bronchitis, unspecified; K21.9 Gastro-esophageal reflux disease without esophagitis; Z87.01 Personal history of pneumonia (recurrent)
CPT/HCPCS: 36415; 36600; 71045; 80053; 80164; 81001; 82550; 82805; 83605; 83880; 84484; 85025; 85379; 93005; 94618; 94640; 94760; 96361; 96374; 96375; J0696; J1885; J2930; J7030; J7512; J7620; 92610; 99285-25